=== PATIENT | male | born 1960 | race Caucasian/White ===

== ENCOUNTER → 2020-05-22 09:51 | Outpatient (CLI) | payer BC, SELFPAY ==
[2020-05-22 11:22] LABS: Hemoglobin A1C% w Est Avg Glu 5.6 % (4.0-6.0)
[2020-05-22 11:29] LABS: Alanine Aminotransferase 41 IU/L (<50); Albumin 4.4 g/dL (3.5-5.0); Albumin Globulin Ratio 1.6 (1.0-2.8); Alkaline Phosphatase 74 U/L (38-126); Aspartate Aminotransferase 30 IU/L (17-59); BUN Creatinine Ratio 27.3 (6-22); Bilirubin Total 0.7 mg/dL (0.2-1.3); Blood Urea Nitrogen 21 mg/dL (9-20); Calcium 9.5 mg/dL (8.4-10.2); Carbon Dioxide 29 mmol/L (22-32); Chloride 107 mmol/L (98-107); Cholesterol 150 mg/dL (140-199); Estimated Glomerular Filt Rate > 60.0 mL/min (>60); Globulin 2.7 g/dL (1.7-4.1); Glucose 96 mg/dL (70-100); HDL Cholesterol 53 mg/dL (40-60); HEMOLYSIS < 15 (0-50); LDL Cholesterol Calculated 84 mg/dL (<100); Sodium 140 mmol/L (137-145); Total Protein 7.1 g/dL (6.3-8.2); Triglycerides 65 mg/dL (35-150)
[2020-05-22 12:10] LABS: Creatinine Urine Random 193.7 mg/dL
[2020-05-22 12:16] LABS: Microalbumin Urine Random < 0.6 mg/dL (0-1.6)
== END ==
PROVIDERS: PCP Family Medicine; Referring Provider Family Medicine; Visit Provider Family Medicine
DX: E78.5 Hyperlipidemia, unspecified (principal); I10 Essential (primary) hypertension
CPT/HCPCS: 36415; 80053; 80061; 82043; 82570; 83036

== ENCOUNTER → 2020-08-07 08:37 | Outpatient (CLI) | payer BC, SELFPAY ==
--- NOTE | 2020-08-07 08:38 | DI.RAD.S_ITS ---
PROCEDURE: XR HIP W PEL IF DONE RT 2V INDICATIONS: right hip pain TECHNIQUE: AP pelvis with lateral view(s) of the right hip(s). COMPARISON: None. FINDINGS: Bones: No fractures or dislocations. Pelvic ring appears intact. No suspicious bony lesions. Note is made of degenerative change with alteration of the morphology of the femoral heads bilaterally greater on the right than the left. There is moderately severe joint space narrowing at the left hip. There is severe joint space narrowing at the right hip where [id number]-af-[id number] articulation is present to the degree that orthopedic surgical consultation is anticipated. Soft tissues: The visualized bowel gas pattern is normal. No suspicious soft tissue calcifications. IMP on the left. RESSION: No acute trauma found. Asymmetric right greater than left hip joint osteoarthritis which is severe on the right and moderately severe on the left, with [id number] articulation.. Dictated by: Eric Burgos M.D. on 08/07/2020 at 11:25 Approved by: Eric Burgos M.D. on 08/07/2020 at 11:27
== END ==
PROVIDERS: PCP Family Medicine; Referring Provider Family Medicine; Visit Provider Family Medicine
DX: M25.551 Pain in right hip (principal); M16.0 Bilateral primary osteoarthritis of hip; I10 Essential (primary) hypertension
CPT/HCPCS: 73502

== ENCOUNTER → 2020-09-25 07:42 | Outpatient (CLI) | payer BC, SELFPAY ==
[2020-09-25] MEDS: COVID-19 VACC #1, MRNA(MOD) 100 MCG/0.5 ML VIAL IM (07:47)
== END ==
PROVIDERS: PCP Family Medicine; Visit Provider Internal Medicine
DX: Z23 Encounter for immunization (principal)
CPT/HCPCS: 0011A; 91301

== ENCOUNTER → 2020-10-23 07:31 | Outpatient (CLI) | payer BC, SELFPAY ==
[2020-10-23] MEDS: COVID-19 VACC #2, MRNA(MOD) 100 MCG/0.5 ML VIAL IM (07:43)
== END ==
PROVIDERS: PCP Family Medicine; Visit Provider Internal Medicine
DX: Z23 Encounter for immunization (principal)
CPT/HCPCS: 0012A; 91301

== ENCOUNTER → 2021-03-25 11:00 | Outpatient (CLI) | payer BC, SELFPAY ==
[2021-03-25 12:25] LABS: Add Manual Diff / Slide Review NO; Basophils Absolute Auto 0 /uL (0-100); Basophils Percent Auto 0.4 % (0-2); Eosinophils Absolute Auto 500 /uL (0-450); Eosinophils Percent Auto 6.5 % (2-4); Hematocrit 42.2 % (41-53); Lymphocytes Absolute Auto 2100 /uL (1100-4500); Lymphocytes Percent Auto 28.3 % (25-40); Mean Corpuscular HGB Conc 33.2 % (30-36); Mean Corpuscular Hemoglobin 29.5 PG (26-34); Mean Corpuscular Volume 88.8 fL (80-100); Monocytes Absolute Auto 600 /uL (0-900); Monocytes Percent Auto 8.5 % (3-14); Neutrophils Absolute Auto 4200 /uL (1500-7000); Neutrophils Percent Auto 56.3 % (50-75); Platelet Count 224 X10^3/uL (150-400); Red Blood Cell Count 4.75 X10^6/uL (4.5-5.9); Red Cell Distribution Width 12.8 % (11.6-14.8); White Blood Cell Count 7.4 X10^3/uL (4.5-11.0)
[2021-03-25 12:35] LABS: Hemoglobin A1C% w Est Avg Glu 5.5 % (4.0-6.0)
[2021-03-25 12:44] LABS: Appearance Urine UA CLEAR; Bilirubin Urine UA NEGATIVE (NEGATIVE); Color Urine UA YELLOW; Glucose Urine UA NEGATIVE (Negative); Ketones Urine UA NEGATIVE (NEGATIVE); Leukocyte Esterase Urine UA NEGATIVE (NEGATIVE); Nitrite Urine UA NEGATIVE (Negative); Occult Blood Urine UA NEGATIVE (Negative); Protein Urine UA NEGATIVE (Negative); Specific Gravity Urine UA 1.025 (1.000-1.035); Urobilinogen Urine UA 0.2 E.U./dL (0.2); pH Urine UA 5.5 (4.5-8.0)
[2021-03-25 13:01] LABS: BUN Creatinine Ratio 22.5 (6-22); Blood Urea Nitrogen 20 mg/dL (9-20); Calcium 10.4 mg/dL (8.4-10.2); Carbon Dioxide 29 mmol/L (22-32); Chloride 106 mmol/L (98-107); Estimated Glomerular Filt Rate > 60.0 mL/min (>60); Glucose 92 mg/dL (80-110); HEMOLYSIS < 15 (0-50); Potassium 4.4 mmol/L (3.4-5.1); Sodium 143 mmol/L (137-145)
[2021-03-25 13:03] LABS: RBC Urine 0-1/HPF (0-5/HPF); Squamous Epithelial Cell Urine 0-1 /HPF (0-5/HPF); WBC Urine None Seen (0-5/HPF)
[2021-03-25 13:04] LABS: Bacteria Urine None Seen; Culture Indicated Urine Cult Not Indicated
== END ==
PROVIDERS: PCP Family Medicine; Referring Provider Orthopaedic Surgery; Visit Provider Orthopaedic Surgery
DX: Z01.818 Encounter for other preprocedural examination (principal); Z01.812 Encounter for preprocedural laboratory examination; R73.9 Hyperglycemia, unspecified; N39.0 Urinary tract infection, site not specified
CPT/HCPCS: 36415; 80048; 81001; 83036; 85025; 93005; 93010

== ENCOUNTER → 2021-04-27 13:16 | Outpatient (CLI) | payer BC, SELFPAY ==
[2021-04-27 16:44] LABS: COVID19 -Nasal RAPID Negative (Negative)
== END ==
PROVIDERS: PCP Family Medicine; Referring Provider Nurse Practitioner Family; Visit Provider Nurse Practitioner Family
DX: Z20.822 Contact with and (suspected) exposure to COVID-19 (principal)
CPT/HCPCS: 87635

== ENCOUNTER 2021-04-28 08:32 | Day surgery (SDC) | payer BC, SELFPAY ==
[2021-04-16 07:46] VITALS: BMI 27.8
[2021-04-28] VITALS (12 sets, daily range): BP systolic 96–137; BP diastolic 63–86; PULSE 59–78; RESP 14–18; TEMP 35.8–36.8; O2SAT 95–100; BMI 27.9
--- NOTE | 2021-04-28 02:30 | DI.RAD.S_ITS ---
PROCEDURE: XR HIP W PEL IF DONE RT 2V COMPARISON: [facility], [place], XR HIP W PEL IF DONE RT 2V, 08/07/2020, 8:38. INDICATIONS: anterior r hip FINDINGS: Intraoperative fluoroscopic views of the right hip demonstrate intraoperative views of total right hip replacement. IMPRESSION: Intraoperative fluoroscopic views as above. Dictated by: Carlton Witt M.D. on 04/28/2021 at 15:04 Approved by: Carlton Witt M.D. on 04/28/2021 at 15:05
--- NOTE | 2021-04-28 08:09 | DI.RAD.S_ITS ---
PROCEDURE: XR HIP W PEL IF DONE RT 2V INDICATIONS: postop prosthesis placement, right hip TECHNIQUE: AP pelvis and lateral view of the right hip acquired. COMPARISON: [facility], [place], XR HIP W PEL IF DONE RT 2V, 04/28/2021, 14:03. FINDINGS: Bones: Patient is status post right total hip arthroplasty, with hardware components in expected positions. The hip joint appears congruent. The visualized bony structures appear intact. Soft tissues: Overlying postoperative changes are noted. No suspicious soft tissue densities. IMPRESSION: Postop changes from right total hip arthroplasty with anatomic right hip alignment. Dictated by: Donis Chu M.D. on 04/28/2021 at 16:37 Approved by: Donis Chu M.D. on 04/28/2021 at 16:38
[2021-04-28] MEDS: ACETAMINOPHEN 325 MG TABLET 975 MG PO (09:18)
[2021-04-28] MEDS: CELECOXIB 200 MG CAPSULE PO (09:19)
[2021-04-28] MEDS: PREGABALIN 75 MG CAPSULE PO (09:20)
[2021-04-28] MEDS: LACTATED RINGERS 1,000 ML 42 ML IV ×2 (09:36→14:52)
[2021-04-28] MEDS: VANCOMYCIN 1,000 MG/200 ML PIGGYBACK 200 MG IV (10:07)
--- NOTE | 2021-04-28 11:27 | P.HP_ITS ---
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 He is brought the operating room for a right total hip arthroplasty. He has failed extensive conservative treatment. He is retired but he likes to fish and boat. Patient History Medical History Colon polyps (~2010) Heartburn History of recurrent ear infection (~1969) Hyperlipidemia Hypertension Multiple lipomas Osteoarthritis Surgical History Anesthesia History of colonoscopy History of colonoscopy with polypectomy History of coronary angiogram (~2010) History of sinus surgery (~2017) History of tympanostomy tube placement Hx of hernia repair S/P excision of lipoma Family & Social History Family History Mother Multiple myeloma Cancer Father History of heart disease Social History: household members spouse Prior Living Arrangements House Safety & Behavioral: Feels Safe in Current Yes Environment Been Physically Hurt or No Threatened By a Person Suicidal Ideation Description None Suicide Plan Description No Plan Tobacco & Substance use: Smoking Status Former smoker alcohol intake current alcohol intake frequency a few times a week Substance Use Type does not use Meds Home Medications and Allergies Home Medications Medication Instructions Recorded Confirmed Type aspirin 81 mg tablet,delayed 81 mg PO DAILY 04/16/21 04/28/21 History release (Aspirin Low Dose) lisinopril 10 mg tablet 10 mg PO DAILY 04/28/21 04/28/21 History meloxicam 15 mg tablet 15 mg PO PRN PRN 04/28/21 04/28/21 History simvastatin 20 mg tablet 20 mg PO DAILY 04/28/21 04/28/21 History Allergies Allergy/AdvReac Type Severity Reaction Status Date / Time Sulfa (Sulfonamide Allergy Severe I turn Verified 04/28/21 08:14 Antibiotics) bright red and I can't eat Review of Systems Review of Systems Narrative: He notes he is doing fine has no new medical problems. Exam Vital Signs (past 8 hours): - 04/28/21 09:07 Temperature 98.3 F Pulse Rate 65 Respiratory Rate 16 Blood Pressure 137/86 Pulse Oximetry 100 Oxygen Delivery Method Room Air Narrative Exam Narrative: HEENT is benign lungs are clear cor regular rate and rhythm abdomen soft benign right hip restricted range of motion severe range of most pain with range of motion, skin intact, neurologically intact distally the fire his toe flexors and extensors. Assessment & Plan Assessment and plan (1) Osteoarthritis of right hip: Status: Acute Plan He has severe right hip osteoarthritis. The plan is for right total hip arthroplasty. Procedure alternatives risks Carlos benefits and complications reviewed again with the patient. We will go ahead and proceed with right total hip arthroplasty. There is no interval change in comparison to his previous H&P. Assessment & Plan narrative: Right hip severe osteoarthritis. The plan is for right total hip arthroplasty. Procedure discussed in detail. We will proceed with that today. Time Spent With Patient Critical Care time: I spent a total of [] minutes of critical care time on this patient's care today; this time is exclusive of procedural time.
--- NOTE | 2021-04-28 11:35 | P.OP_ITS ---
Operative Date/Time/Diagnoses Date of procedure: 04/28/21 Time of procedure: 11:36 Pre-op diagnosis: Severe right hip osteoarthritis. Post-op diagnosis: same Procedure & Clinicians Procedure: Right total hip arthroplasty anterior approach Same procedure as scheduled: Yes Indications: The patient has had progressively worsening right hip pain with radiographic changes consistent with arthritis. Non-operative management has failed and the patient has requested total hip replacement. The risks, benefits and alternatives to surgery were discussed with the patient prior to proceeding. Risks discussed included, but were not limited to, failure to relieve pain, leg length discrepancy, dislocation, stiffness, infection, nerve damage, deep venous thrombosis, pulmonary embolism, stroke, coma, heart attack, permanent paralysis and , as well as the potential need for eventual revision of the prosthetic. Surgeon: Emmie Rodriguez Passenger Rate Clerk: Liza Hall Anesthesia Type: Spinal Operative Notes Findings: Severe right hip osteoarthritis, good quality bone, adequate stability Closure Type: primary Specimen(s): none sent Prosthetic devices, grafts, tissues, transplants, or devices: Rodriguez and nephew size 8 high offset anthology, 56 mm R3 cup, neutral poly liner, 2 6.5 mm cancellous screws, minus 3 x 36 mm Oxinium head Applied: drain(s) Estimated Blood Loss (mL): 250 Blood products transfused: none Procedure in detail: The patient was brought to the operating room. Patient was carefully positioned in the supine position. Time-out was performed and antibiotics were given. Anesthesia was induced. He was positioned in the on the table in order to allow hyperextension of the hip. The right lower extremity was prepped and draped in a standard sterile fashion. An anterior right hip incision was made 1 fingerbreadth lateral to the anterior superior iliac spine and extended distally towards the greater trochanter. Dissection was carried out through skin and subcutaneous tissues. Superficial hemostasis was achieved. The fascia over the tensor fascia nguyễn was defined and incised with a knife. Two Allis clamps were used to grasp the fascia. Tensor fascia nguyễn was retracted laterally. A gelpi retractor was placed. Dissection was carried out down along the neck. The circumflex vessels were carefully identified and cauterized with the werewolf. There was good visualization of the femoral neck. A Cobra was placed superior to the neck and the gluteus fibers were carefully stripped from that superior aspect of the capsule. A 2nd retractor was placed along the inferior aspect of the neck. The rectus insertion along the capsule was partially released. A 3rd retractor that was then gently placed over the rim of the acetabulum under the rectus. Capsule was carefully incised and released from the intertrochanteric line circumferentially superior to the mid sagittal line and inferiorly to the mid sagittal line until the lesser trochanter was palpable. A tag stitch was placed both in the superior and inferior limb of the capsular insertion. Along the acetabulum capsule was also released up to the mid sagittal 12:00 position. A portion of the labrum was resected. A saw was used to perform an osteotomy at the level of the intertrochanteric line and the junction of the superior femoral neck leaving approximately 1 finger breath of residual inferior neck above the lesser trochanter. A 2nd cut was made along the femoral neck at the base of the head and a napkin ring of neck was removed. Corkscrew was placed in the femoral head and the head was removed without difficulty. Retractors were then repositioned around the acetabulum. Residual labrum was resected and additional osteophytes were removed. A reamer that was 4 mm below the templated size was placed by hand in the acetabulum and it was reamed to centralize the acetabulum. It was then reamed up to 2 under the templated size and fluoroscopy was brought in to confirm the position of the reaming and depth of reaming. I reamed 1 under the anticipated size. A trial cup was placed and noted that it was appropriately sized and fluoroscopy confirmed position and depth. The component was open and inserted without difficulty fluoroscopic imaging was used to confirm that the cup had been adequately seated and was well positioned. It was further stabilized with two screws. Neutral poly liner was placed. The cup was tested and noted to be stable. Attention was then directed to the femur. The femur was gently hyperextended additional capsular release was performed as needed in order to allow adequate visualization of the proximal femur with elevation of the femur. Patient was placed in a hyperextended slightly adducted position with maximum external rotation. Box osteotome was used to check for any residual neck as well as sclerotic bone along the trochanter. [place] pepper was placed in the femur. Additional broaching was performed. Canal finder was used to determine the alignment of the canal and position. Size 1 broach was placed. The canal was then appropriately broached up to the templated size as long as there was adequate stability of the broach and serial advancement of the broach without excessive impingement. Specific attention was directed at avoiding varus attempting to direct the distal aspect of the broach more anteriorly and avoiding excessive anteversion. Trial reduction showed acceptable range of motion, good stability, no posterior impingement, anabaptism of leg length and appropriate lateral shuck. I also hyperflexed the hip and checked that there was no impingement anteriorly and there was good stability with flexion, adduction and internal rotation. Marcaine and Exparel were injected. The stem was placed without difficulty. It was fairly tight for the reduction but the x-rays showed acceptable leg length and offset. Repeat trial reduction and x-ray showed acceptable overall position, length, and no evidence of the femoral fracture. Final head was placed. Wound was meticulously irrigated with normal saline. The hip was reduced and additional Exparel and Marcaine were injected. The capsule was closed with interrupted nonabsorbable sutures. The fascia of the tensor was closed with interrupted and running Vicryl. No drain was placed. Any tensor fascia nguyễn muscle that appeared to be contused or injured which was a minimal amount was carefully resected. Capsule around the tensor was injected with Exparel and Marcaine. The skin was closed with barbed stitches for the subcutaneous tissue and skin. We also used surgical glue. The wound was dressed sterilely. Brief Betadine soak was also used and was meticulously irrigated with normal saline. Patient was transferred to recovery room in satisfactory condition. Complications: none Post-operative Condition: stable Disposition: Acute Care Plan for aftercare: The patient will be maintained on a standard total hip replacement protocol with weight bearing as tolerated and anterior hip precautions. The patient will rece gerson Aspirin and sequential compression devices for DVT prophylaxis. The patient will be discharged home when safe for the home environment.
[2021-04-28] MEDS: CEFAZOLIN 2 GM/20 ML SYRINGE IV ×2 (11:55→20:23)
[2021-04-28] MEDS: TRANEXAMIC ACID 1,000 MG VIAL 1000 MG INJ ×2 (12:02→14:13)
--- NOTE | 2021-04-28 12:18 | SUR.OPER ---
Patient supine on padded [place] table, one arm on padded arm board at <90, other arm padded and secured with tape across patient's chest, both legs secured in padded traction boots and positioned per surgeon, padded post at patient's groin, pressure points checked and padded.
[2021-04-28] MEDS: BUPIVACAINE 0.25% (PF) 60 ML, EPINEPHrine 0.3 MG INJ (13:23)
[2021-04-28] MEDS: BUPIVACAINE LIPOSOME 266 MG/20 ML VIAL INJ (13:24)
[2021-04-28] MEDS: SODIUM CHLORIDE IRRIG SOLUTION 250 ML, POVIDONE-IODINE SPONGE STICKS 1 APPLIC IRR (13:26)
--- NOTE | 2021-04-28 15:15 | SUR.PHASEI ---
Addendum entered by Melissa Prater R.N. 04/28/21 15:45: 1535-Does report some residual numb/tingling in buttocks /perineum area-feels like he sat too long. report to floor RN given. exaprel arm band on left wrist. csm ble otherwise unchanged. Off monitor-transitioning to floor.vss . oxygen sat 99 on r/a. still refused po fluids. iv converted to saline lock for transfer. denied pain/nausea. Dr Rodriguez in to say hi to patient. 1540-In room via bed. Care transferred to Estefania DUMONT. one bag of belongings left at bedside. Original Note: Pacu note: 1515-Patient recieved spinal duramorph intra op. No complaint of pain or nausea at this time. more awake and follows commands. Rt hip xrays completed. ice rt hip.dressing cdi rt lateral hip. Csm RLE-moderate dorsi/planter flexion, toes warm,pink,under 3 sec refill each digit. strong dp/pt pulses. Able to lift/bend left knee well. vss. 1525-more awake and alert.oriented x 4. denies any numbness/tingling in feet bilateral. dorsi/planter flexion strong bilaterally.no other changes in status. Refused offers for po ice chips or fluids.
[2021-04-28] MEDS: LACTATED RINGERS 1,000 ML 125 ML IV (16:10)
[2021-04-28] MEDS: IBUPROFEN 400 MG TABLET PO ×2 (17:59→20:23)
[2021-04-28] MEDS: ACETAMINOPHEN 325 MG TABLET 650 MG PO (20:23)
[2021-04-28] MEDS: ATORVASTATIN 20 MG TABLET 10 MG PO (20:24)
[2021-04-28] MEDS: DOCUSATE 100 MG CAPSULE PO (20:24)
[2021-04-28] MEDS: ASPIRIN EC 81 MG TABLET PO (20:24)
[2021-04-29] VITALS: BP 119/70; PULSE 69; RESP 16; TEMP 36.4; O2SAT 98
[2021-04-29] MEDS: LACTATED RINGERS 1,000 ML 125 ML IV (00:08)
[2021-04-29] MEDS: IBUPROFEN 400 MG TABLET PO ×3 (00:09→08:17)
--- NOTE | 2021-04-29 03:04 | PC.NURSE ---
Patient was bladder scanned at shift change d/t not being able to void since arriving to the unit, scan showed 451 in the bladder. Day shift RN straight cath'd the patient and was able to drain 450 out. Patient still was not able to void this shift and at 0100 the patient stated that he could feel the urge and had mild distention. A bladder scan was done which revealed 600 in the bladder. This RN straight cath'd the patient and was able to drain 525 out. Patient stated that he felt better. Will continue to monitor
[2021-04-29 04:00] VITALS: BP 117/68; PULSE 67; RESP 16; TEMP 36.2; O2SAT 96
[2021-04-29] MEDS: CEFAZOLIN 2 GM/20 ML SYRINGE IV (04:26)
[2021-04-29 06:31] LABS: Hematocrit 34.8 % (41-53); Hemoglobin 11.8 g/dL (13.5-17.5)
[2021-04-29 08:17] VITALS: BP 118/74; PULSE 62
[2021-04-29] MEDS: lisinopriL 10 MG TABLET PO (08:17)
[2021-04-29] MEDS: ACETAMINOPHEN 325 MG TABLET 650 MG PO (08:18)
[2021-04-29] MEDS: ASPIRIN EC 81 MG TABLET PO (08:18)
[2021-04-29] MEDS: DOCUSATE 100 MG CAPSULE PO (08:18)
[2021-04-29 08:20] VITALS: BP 118/74; PULSE 63; RESP 16; TEMP 36.4; O2SAT 98
--- NOTE | 2021-04-29 10:26 | PT.IIE ---
Current Diagnoses Unilateral primary osteoarthritis, right hip (04/28/21) Surgery Performed Operation Date: 04/28/21 10:30 Actual Procedures p Total Hip Arthroplasty/Anterior Approach(Right) - Emmie Rodriguez MD Surgical History (Last Reviewed 04/29/21 @ 11:00 by Dionicio Perry PA-C) Anesthesia History of coronary angiogram (~2010) Medical History (Last Reviewed 04/29/21 @ 11:00 by Dionicio Perry PA-C) Colon polyps (~2010) Heartburn History of recurrent ear infection (~1969) Hyperlipidemia Hypertension Multiple lipomas Osteoarthritis Physical Therapy Inpatient Evaluation/Re-Eval M1 PT/OT-IP Prior Functional Status Start: 04/29/21 13:20 Freq: NEEDED Status: Active Protocol: Document 04/29/21 10:26 AB (Rec: 04/29/21 13:29 AB [id number]) Medical Review Prior Functional Status Medical History Reviewed Yes Communication able to make needs known Mobility and Gait pt stated that he is independent with all mobilities and ambulation without AD Social History Household Members spouse Living Arrangements House Number of Floors (Floors) Two Floors Number of Stairs To Enter/Railing? pt stays on main level of the house has no steps to enter Home Environment Standard Height Toilet,Walk in Shower,Built-In Shower Seat Home Equipment Front Wheel Walker,Straight Cane M2 PT-IP Current Condition Start: 04/29/21 13:20 Freq: NEEDED Status: Active Protocol: Document 04/29/21 10:26 AB (Rec: 04/29/21 13:29 AB [email or web address]) Physical Therapy Current Condition Current Condition Evaluation Date 04/29/21 Treatment Diagnosis s/p R SAWYER anterior approach; difficulty in walking Onset Date 04/28/21 M3 PT-IP Subjective Start: 04/29/21 13:20 Freq: NEEDED Status: Active Protocol: Document 04/29/21 10:26 AB (Rec: 04/29/21 13:29 AB [email or web address]) Subjective Physical Therapy Visit Type Type Initial Evaluation Visit Start Time 10:26 Visit Stop Time 11:05 Total Visit Minutes 39 Number of MITTEN SEWER Visits 0 Physical Therapy Visit Comments Patient Comments agreeable to do PT Therapy Pain Assessment Pain When Pain Assessed During Mobility Pain Present Pain Present Pain Reported Location Right Hip Intensity 4 Scale Used Numeric (0 - 10) Pain Management Techniques Distraction,Modification of Treatment,Re-positioning, Timing of Activity with Medications M4 PT-IP Mobility and Gait Start: 04/29/21 13:20 Freq: NEEDED Status: Active Protocol: Document 04/29/21 10:26 AB (Rec: 04/29/21 13:29 [email or web address]) PT-Bed Mobility Assessment Supine to Sit Supine to Sit Standby Assistance PT-Transfer Assessment Sit to and From Stand Sit to and from Stand Standby Assistance,1 Person Assistance,Use of Upper Extremities Equipment Transfer Assistive Device Gait Belt,Front Wheeled Walker Orthotic/Prosthetic Devices or Brace: No Transfers Transfer Destination Chair Transfer Technique ambulated Transfer Ability Level of Assist Standby Assistance,Contact Guard Assistance Comments Mobility Comments pt educated on anterior hip precautions. completed supine to sit SBA. able to sit on EOB SBA. completed sit to stand SBA. ambulated in room ~ 75 ft using FWW initially requirind CGA. cued for R quads activation and able to follow and required SBA after a few feet of ambulation. also initially requiring cues to maintain hip precautions but able to recall and apply during mobility. pt agreed to sit on chair. positioned on chair. educated on car transfer techniques. call ilght and table placed within reach. Gait Assessment Gait Gait Assistance Required: Standby Assistance,Contact Guard Assist Distance (Feet) 75 Able to Maintain Weight Bearing Status Yes During Gait Assistive Devices Assistive Device Gait Belt,Front Wheeled Walker Orthotic/Prosthetic Devices or Brace: No Gait Deviations General Gait Pattern Antalgic Factors Limiting Gait Function Factors Limiting Gait Function Decreased Activity Tolerance, Decreased Strength,Limited Range of Motion,Pain,Poor Balance PT-Balance Assessment Sitting Balance and Reactions Static Sitting Balance Ability Normal Dynamic Sitting Balance Ability Good Standing Balance and Reactions Static Standing Balance Ability Fair Dynamic Standing Balance Ability Fair Device Used FWW M5 PT-IP Objective Assessments Start: 04/29/21 13:20 Freq: NEEDED Status: Active Protocol: Document 04/29/21 10:26 AB (Rec: 04/29/21 13:29 [email or web address]) Orientation Orientation/Cognition Level of Alertness Alert Orientation Name,Age,Birthday,Month,Date, Year,Day of Week,Place, Situation Language Function Ability No Deficits Noted Safety Awareness Understands Safety Issues Memory Description Short Term Impaired Gross Range of Motion Lower Extremity ROM Assessment Within Functional Limits Strength Lower Extremity Strength Assessment Right Impaired Hip 3+/5 Knee 4-/5 Coordination Assessment Gross Coordination Gross Coordination WNL Sensation Assessment Sensation Gross Sensation WNL Muscle Tone Muscle Tone WNL Yes M6 PT-IP Treatment Start: 04/29/21 13:20 Freq: NEEDED Status: Active Protocol: Document 04/29/21 10:26 AB (Rec: 04/29/21 13:29 AB [id number]) Physical Therapy Treatment Education Education Provided Precautions,Weight Bearing Status,Post-Op Packet,Safety M7 PT-IP Assessment and Plan Start: 04/29/21 13:20 Freq: NEEDED Status: Active Protocol: Document 04/29/21 10:26 AB (Rec: 04/29/21 13:29 AB [email or web address]) PT Summary Assessment and Plan Potential Rehabilitation Potential Good Status of Condition at Evaluation Stable Summary Impairments Pain,ROM,Strength,Balance, Coordination,Sensation,Tone, Cognition,Bed Mobility, Transfers,Gait,Activity Tolerance Assessment Summary pt requiring SBA with mobility using FWW and plans to go home with spouse to assist him . pt has outpt PT scheduled. pt may go home when medically stable. Goals Bed Mobility Goal Independent Transfer Goal Independent,Front Wheeled Walker Gait Goal Independent,Front Wheel Walker Gait Distance 250 Days to Meet Goals 0 Frequency of Treatment Frequency Of Treatment Twice a Day Treatment Plan Physical Therapy Treatment Plan Bed Mobility Training,Transfer Training,Gait Training, Therapeutic Exercise,Balance Retraining,Post Op Education, Discharge Planning,Hot or Cold Pack,Neuromuscular Re-ed, Coordination Retraining,Manual Therapy Precautions Anterior Hip Precautions No Hip Extension,No Hip External Rotation Weight Bearing Status Weight Bearing Status Weight Bear as Tolerated Allowed Weight Bearing Amount (enter % RLE WBAT or #) (%) Recommendations To Nursing Amount of Assist Needed Standby Assistance Discharge Recommendations PT Discharge Recommendations Home with Assistance, Outpatient PT Transportation Needs at Discharge Private Vehicle
--- NOTE | 2021-04-29 10:58 | PM.DS.1 ---
History of Present Illness History of Present Illness Date Patient Seen: 04/29/21 Time Patient Seen: 10:58 Chief complaint: Right hip pain Narrative: Patient's pain is mild. Denies fever or chills. No nausea or vomiting. Discharge Providers Provider Discharge Date: 04/29/21 Primary care physician: Ash Redmond MD Consults: 04/28/21 08:09 Consult to Anesthesiology Routine Comment: Consulting Provider: Anesthesiologist Reason for consultation: Regional block for post operative pain control 04/28/21 15:46 Consult to Discharge Planning Routine Comment: Consult to Physical Therapy Evaluate & Treat Comment: Physician Instructions: post op SAWYER protocol Consult to Respiratory Therapy Evaluate & Treat Comment: Physician Instructions: Evaluate and treat Discharge provider: Dionicio Perry PA-C Summary Hospital Course Discharge Diagnosis: Severe right hip osteoarthritis Hospital Course: Procedure: Right total hip arthroplasty anterior approach Same procedure as scheduled: Yes Indications: The patient has had progressively worsening right hip pain with radiographic changes consistent with arthritis. Non-operative management has failed and the patient has requested total hip replacement. The risks, benefits and alternatives to surgery were discussed with the patient prior to proceeding. Risks discussed included, but were not limited to, failure to relieve pain, leg length discrepancy, dislocation, stiffness, infection, nerve damage, deep venous thrombosis, pulmonary embolism, stroke, coma, heart attack, permanent paralysis and , as well as the potential need for eventual revision of the prosthetic. Surgeon: Emmie Rodriguez Employee Placement Specialist: Liza Hall Anesthesia Type: Spinal Operative Notes Findings: Severe right hip osteoarthritis, good quality bone, adequate stability Closure Type: primary Specimen(s): none sent Prosthetic devices, grafts, tissues, transplants, or devices: Rodriguez and nephew size 8 high offset anthology, 56 mm R3 cup, neutral poly liner, 2 6.5 mm cancellous screws, minus 3 x 36 mm Oxinium head Applied: drain(s) Estimated Blood Loss (mL): 250 Blood products transfused: none Patient admitted to the hospital for the above-mentioned procedure. Patient consented to the same. Patient taken to the operating room on April 28, 2021. Patient underwent right total hip arthroplasty, anterior approach. Patient back in his room recovering well as in stable condition. Discharge home today in stable condition. Exam Vital Signs (past 8 hours): - 04/29/21 04:00 04/29/21 08:17 04/29/21 08:20 Temperature 97.2 F L 97.5 F L Pulse Rate 67 62 63 Respiratory Rate 16 16 Blood Pressure 117/68 118/74 118/74 Pulse Oximetry 96 98 Oxygen Delivery Method Room Air Oxygen Flow Rate 0 Narrative Exam Narrative: 60-year-old male resting comfortably in bed in no apparent distress. Dressing is Clean, dry, intact.. Motor functions intact distal bilateral lower extremities. Sensation grossly intact bilateral lower extremities. Objective Labs Result Diagrams: 04/29/21 05:35 Labs: Laboratory Results - last 24 hr 04/29/21 05:35 Hgb 11.8 L Hct 34.8 L PFSH Medical History Colon polyps (~2010) Heartburn History of recurrent ear infection (~1969) Hyperlipidemia Hypertension Multiple lipomas Osteoarthritis Surgical History Anesthesia History of colonoscopy History of colonoscopy with polypectomy History of coronary angiogram (~2010) History of sinus surgery (~2017) History of tympanostomy tube placement Hx of hernia repair S/P excision of lipoma Family History Mother Multiple myeloma Cancer Father History of heart disease Social History household members: spouse Smoking Status: Former smoker alcohol intake: current Discharge Assessment & Plan Assessment and Plan Assessment: Patient progressing as expected Plan of Treatment: Discharge home today in stable condition Discharge Plan Discharge Plan Patient Disposition: Home Provider Discharge Comment: Discharge home after physical therapy Discharge orders & Medications Discharge Orders: Discharge (Order); Ordered 04/29/21 Ordered By: Dionicio Perry Prescriptions: New acetaminophen 325 mg Tablet 650 mg PO TID Qty: 60 0RF aspirin 81 mg Tablet,Delayed Release (Dr/Ec) 81 mg PO BID Qty: 60 0RF ibuprofen 400 mg Tablet 400 mg PO Q4HR Qty: 60 0RF oxycodone 5 mg Tablet 10 mg PO Q3HR PRN (Reason: Pain, Severe (7-10)) Qty: 60 0RF Rx Instructions: 1-2 tablets every 3 hours as needed for pain Continued simvastatin 20 mg tablet 20 mg PO DAILY 0RF Rx Instructions: TAKE 1 TABLET BY MOUTH EVERY EVENING lisinopril 10 mg tablet 10 mg PO DAILY 0RF Label Comments: Pt takes after dinner Rx Instructions: TAKE 1 TABLET BY MOUTH DAILY Discontinued aspirin [Aspirin Low Dose] 81 mg Tablet,Delayed Release (Dr/Ec) 81 mg PO DAILY 0RF meloxicam 15 mg tablet 15 mg PO PRN PRN (Reason: Pain (Scale Score 1-3)) 0RF Follow up/Referrals: Ash Redmond MD [Primary Care Provider] - Emmie Rodriguez MD [Physician] - (2 weeks) Diet/Activity/Treatments Diet: Diet as Tolerated Activity: Weight-bearing as tolerated, anterior hip precautions Skin/Wound/Dressing Care Report to your healthcare provider any signs of infection, such as:: chills, fever, increased pain, unusual drainage and unusual redness Dressing: Keep dressing clean and dry Visit Report/Discharge Packet Instructions: DI for Hip Replacement Stand Alone Forms: Surgery Discharge Discharge Data Primary Care Provider: Ash Redmond Attending Provider: Emmie Rodriguez Quality VTE Deep Vein Thrombosis/Pulmonary Embolism Present on Admission: No
== END 2021-04-29 12:00 | disposition home or self-care (01) ==
LOC: OR 08:34 → AC 08:34
PROVIDERS: PCP Family Medicine; Referring Provider Family Medicine; Visit Provider Orthopaedic Surgery
PROC: (CPT 27130; principal; 2021-04-28 10:30)
DX: M16.11 Unilateral primary osteoarthritis, right hip (principal); I10 Essential (primary) hypertension; E78.5 Hyperlipidemia, unspecified; K21.9 Gastro-esophageal reflux disease without esophagitis
CPT/HCPCS: 27130; 36415; 73502; 76000; 85014; 85018; 97161; 97530; C1776; C9290; J0171; J0330; J0690; J1100; J2250; J2274; J2405; J2704; J3010

== ENCOUNTER → 2022-03-18 09:54 | Outpatient (CLI) | payer BC, SELFPAY ==
[2021-04-28 08:48] VITALS: BMI 27.9
[2022-03-18 11:00] LABS: Alanine Aminotransferase 54 IU/L (<50); Albumin 4.2 g/dL (3.5-5.0); Albumin Globulin Ratio 1.6 (1.0-2.8); Alkaline Phosphatase 71 U/L (38-126); Aspartate Aminotransferase 28 IU/L (17-59); BUN Creatinine Ratio 19.3 (6-22); Bilirubin Total 0.4 mg/dL (0.2-1.3); Blood Urea Nitrogen 17 mg/dL (9-20); Calcium 9.6 mg/dL (8.4-10.2); Carbon Dioxide 23 mmol/L (22-32); Chloride 108 mmol/L (98-107); Cholesterol 158 mg/dL (140-199); Estimated Glomerular Filt Rate > 60 mL/min (>60); Globulin 2.6 g/dL (1.7-4.1); Glucose 100 mg/dL (80-110); HDL Cholesterol 54 mg/dL (40-60); HEMOLYSIS < 15 (0-50); LDL Cholesterol Calculated 86 mg/dL (<100); Potassium 4.5 mmol/L (3.4-5.1); Sodium 143 mmol/L (137-145); Total Protein 6.8 g/dL (6.3-8.2); Triglycerides 88 mg/dL (35-150)
[2022-03-18 11:02] LABS: Add Manual Diff / Slide Review NO; Basophils Absolute Auto 0 /uL (0-100); Basophils Percent Auto 0.3 % (0-2); Eosinophils Absolute Auto 400 /uL (0-450); Eosinophils Percent Auto 5.8 % (2-4); Hematocrit 40.1 % (41-53); Hemoglobin 13.9 g/dL (13.5-17.5); Lymphocytes Absolute Auto 2300 /uL (1100-4500); Lymphocytes Percent Auto 36.4 % (25-40); Mean Corpuscular HGB Conc 34.6 % (30-36); Mean Corpuscular Hemoglobin 29.4 PG (26-34); Mean Corpuscular Volume 85.1 fL (80-100); Monocytes Absolute Auto 600 /uL (0-900); Monocytes Percent Auto 9.4 % (3-14); Neutrophils Absolute Auto 3100 /uL (1500-7000); Neutrophils Percent Auto 48.1 % (50-75); Platelet Count 239 X10^3/uL (150-400); Red Blood Cell Count 4.71 X10^6/uL (4.5-5.9); Red Cell Distribution Width 13.3 % (11.6-14.8); White Blood Cell Count 6.4 X10^3/uL (4.5-11.0)
[2022-03-18 11:03] LABS: HEMOLYSIS < 15 (0-50); Iron 111 ug/dL (49-181)
[2022-03-18 11:14] LABS: Percent Iron Saturation 32 % (20-50); Total Iron Binding Capacity 347 ug/dL (261-462); Transferrin 253 mg/dL (206-381)
[2022-03-18 11:29] LABS: Prostate Specific Antigen Scrn 3.57 ng/mL (0.1-4.0)
[2022-03-18 11:33] LABS: Ferritin 33 ng/mL (18-464)
[2022-03-18 11:48] LABS: Vitamin B12 454 pg/mL (239-931)
[2022-03-18 16:29] LABS: Hep C Virus Ab w/Reflex Quant NEGATIVE s/c (NEGATIVE)
[2022-03-18 19:20] LABS: Creatinine Urine Random 130.6 mg/dL
[2022-03-18 19:25] LABS: Microalbumi Creatinin Ratio Ur 6.1 ug/mg CR (<30); Microalbumin Urine Random 0.8 mg/dL (0-1.6)
== END ==
PROVIDERS: PCP Family Medicine; Referring Provider Family Medicine; Visit Provider Family Medicine
DX: D64.9 Anemia, unspecified (principal); E78.5 Hyperlipidemia, unspecified; I10 Essential (primary) hypertension; M25.559 Pain in unspecified hip; Z12.5 Encounter for screening for malignant neoplasm of prostate
CPT/HCPCS: 36415; 80053; 80061; 82043; 82570; 82607; 82728; 83540; 83550; 85025; 86803; G0103

== ENCOUNTER → 2022-11-10 12:12 | Outpatient (CLI) | payer BC, OTHER, SELFPAY ==
[2021-04-28 08:48] VITALS: BMI 27.9
--- NOTE | 2022-11-10 12:13 | DI.RAD.S_ITS ---
PROCEDURE: XR ANKLE LT MIN 3V INDICATIONS: Left ankle strain TECHNIQUE: 3 views of the ankle were acquired. COMPARISON: None. FINDINGS: Bones: No fractures or dislocations. Ankle mortise is normally aligned. No suspicious bony lesions. Soft tissues: Malleolar swelling suspected. No tibiotalar joint effusion. Achilles tendon appears normal. IMPRESSION: No acute osseous abnormality. If clinically indicated consider follow-up radiographs in 10-14 days. Dictated by: Zachary Krishnan M.D. on 11/10/2022 at 15:05 Approved by: Zachary Krishnan M.D. on 11/10/2022 at 15:07
== END ==
PROVIDERS: PCP Family Medicine; Referring Provider Nurse Practitioner Family; Visit Provider Nurse Practitioner Family
DX: S96.912A Strain of unspecified muscle and tendon at ankle and foot level, left foot, initial encounter (principal)
CPT/HCPCS: 73610

== ENCOUNTER → 2023-01-21 11:09 | Outpatient (CLI) | payer BC, OTHER, SELFPAY ==
[2021-04-28 08:48] VITALS: BMI 27.9
--- NOTE | 2023-01-21 11:10 | DI.RAD.S_ITS ---
PROCEDURE: XR ANKLE LT MIN 3V INDICATIONS: unresolved pain, please compare to November x-ray TECHNIQUE: 3 views of the ankle were acquired. COMPARISON: [facility], [place], XR ANKLE LT MIN 3V, 11/10/2022, 12:25. FINDINGS: Bones: No fractures or dislocations. Ankle mortise is normally aligned. No suspicious bony lesions. Soft tissues: Small tibiotalar joint effusion. Achilles tendon appears normal. Soft tissue swelling about the ankle. IMPRESSION: No acute osseous abnormality. No significant change compared to 11/10/2022. If clinically indicated, cross-sectional imaging may be of value. Dictated by: John Rowan M.D. on 01/21/2023 at 12:49 Approved by: John Rowan M.D. on 01/21/2023 at 12:51
== END ==
PROVIDERS: PCP Family Medicine; Referring Provider Family Medicine; Visit Provider Family Medicine
DX: S96.912A Strain of unspecified muscle and tendon at ankle and foot level, left foot, initial encounter (principal); M25.472 Effusion, left ankle; M79.89 Other specified soft tissue disorders; M25.572 Pain in left ankle and joints of left foot; X58.XXXA Exposure to other specified factors, initial encounter
CPT/HCPCS: 73610

== ENCOUNTER → 2023-01-25 19:30 | Outpatient (CLI) | payer BC, OTHER, SELFPAY ==
[2021-04-28 08:48] VITALS: BMI 27.9
--- NOTE | 2023-01-25 19:35 | DI.MRI.S_ITS ---
PROCEDURE: MR ANKLE LT WO CON INDICATIONS: ongoing left ankle swelling TECHNIQUE: Noncontrast sagittal T1 spin echo and T2 fast spin echo with fat saturation, axial proton density fast spin echo and T2 fast spin echo with fat saturation, coronal T1 spin echo and T2 fast spin echo with fat saturation through the ankle/hindfoot. COMPARISON: None. FINDINGS: Image quality: Excellent. Bones and joints: Diffuse subcutaneous soft tissue edema and swelling surrounding distal lower leg and extending to dorsal and lateral aspect of midfoot and hindfoot is seen. Osteoarthritic changes are noted throughout midfoot and hindfoot joints with joint space narrowing and subchondral sclerosis. No fracture or dislocation. Subtle area of marrow edema involving lateral weight-bearing portion of talar dome is seen concerning for early tiny osteochondral injuries best seen on series 6, image 15 and series 7, image 16. Small amount of tibiotalar and subtalar joint effusion is seen, no gross loose bodies. Medial structures: The posterior tibialis tendon is thickened with small amount of fluid distending tendon sheath at the level of mid to distal talus and talonavicular joint. The flexor digitorum longus, and flexor hallucis longus tendons are intact. The posterior tibial neurovascular bundle appears normal within the tarsal tunnel, without extrinsic mass effect. The deep layer (anterior and posterior tibiotalar ligaments) and superficial layer (tibionavicular, tibiospring, and tibiocalcaneal ligaments) of the deltoid ligament appear normal. The spring ligament components (superomedial calcaneonavicular, medioplantar oblique calcaneonavicular, and inferoplantar longitudinal ligaments) are intact. Lateral structures: The anterior talofibular, calcaneofibular, and posterior talofibular ligaments appear intact. More superiorly, the anterior and posterior tibiofibular ligaments appear intact, as is the intermalleolar ligament. The tibiofibular syndesmosis is normal in width at 2 mm or less. The peroneus longus and brevis tendons demonstrate normal location and morphology. Adjacent bony peroneal tubercle and retrotrochlear prominence are normal in size. The sinus tarsi demonstrates normal fatty signal, without edema, fibrosis, or cyst formation. Visualized sinus tarsi components (cervical ligament, interosseous talocalcaneal ligament, roots of the inferior extensor retinaculum) appear normal. The calcaneonavicular and calcaneocuboid components of the bifurcate ligament appear intact. The dorsal calcaneocuboid ligament appears intact. Anterior structures: The tibialis anterior, extensor hallucis longus, and extensor digitorum longus tendons appear intact. The dorsal talonavicular ligament appears intact. Posterior and plantar structures: There is diffuse thickening of the Achilles tendon with focal moderate grade partial-thickness tear involving Achilles tendon approximately 4.3 cm from its insertion on posterior calcaneus and up to 2.3 cm proximal retraction of torn tendon fibers with a intrasubstance fluid signal and surrounding edema. Medial and lateral bands of the plantar fascia are of normal thickness. No abductor digiti quinti muscle atrophy to suggest Cervantes neuropathy. IMPRESSION: 1. Focal area of moderate grade partial-thickness tear involving Achilles tendon approximately 4.3 cm from its insertion on posterior calcaneus with up to 2.3 cm proximal retraction of torn tendon fibers and surrounding fluid. No full-thickness Achilles tendon rupture. 2. [id number] midfoot and hindfoot joint osteoarthritis. No fracture or dislocation. Suggestion of early tiny osteochondral injuries involving lateral weight-bearing portion of talar dome. Diffuse ankle soft tissue swelling and edema. 3. Tendinosis involving posterior tibialis tendon at the level of distal talus and talonavicular joint. 4. Medial and lateral ankle ligaments are grossly intact. Dictated by: Donis Chu M.D. on 01/26/2023 at 10:31 Approved by: Donis Chu M.D. on 01/26/2023 at 10:35
== END ==
PROVIDERS: PCP Family Medicine; Referring Provider Family Medicine; Visit Provider Family Medicine
DX: S86.012A Strain of left Achilles tendon, initial encounter (principal); M19.072 Primary osteoarthritis, left ankle and foot; M25.572 Pain in left ankle and joints of left foot; M25.472 Effusion, left ankle
CPT/HCPCS: 73721

== ENCOUNTER 2023-05-19 11:15 | Outpatient (RCR) | payer BC, OTHER, SELFPAY ==
[2021-04-28 08:48] VITALS: BMI 27.9
--- NOTE | 2023-04-05 16:41 | PT.OIE ---
Current Diagnoses Primary osteoarthritis, unspecified ankle and foot (04/05/23) Strain of unspecified Achilles tendon, initial encounter (04/05/23) Past Medical History (Last Updated 03/16/22 @ 15:59 by Ash Redmond MD) Colon polyps (~2010) Heartburn History of recurrent ear infection (~1969) Hyperlipidemia Hypertension Multiple lipomas Osteoarthritis Past Surgical History (Last Reviewed 04/29/21 @ 11:00 by Dionicio Perry PA-C) Anesthesia History of colonoscopy History of colonoscopy with polypectomy History of coronary angiogram (~2010) History of sinus surgery (~2017) History of tympanostomy tube placement Hx of hernia repair S/P excision of lipoma Visit Care Team Role Provider Type Ash Redmond MD Family Provider Physician Primary Care Provider Specialty: Family Practice Address: [address] [place] [address] Email: [email or web address] Lynn You PA-C Attending Provider Advanced Negative Checker Referring Provider Specialty: Medical Wound Care Address: [address] [place] [address], [facility] Email: [email or web address] Physical Therapy Initial Evaluation PT-OP-A Visit Information Start: 04/05/23 11:37 Freq: Status: Active Protocol: Document 04/05/23 16:02 [facility] (Rec: 04/05/23 16:40 [facility] [id number]) Out-Patient Physical Therapy Visit Information Visit Information Visit Type Initial Evaluation Visit Start Time 13:15 Visit Stop Time 14:10 Total Visit Minutes 55 Visit Number 1 Evaluation Information Evaluation Date 04/05/23 PT-OP-B Current Condition Start: 04/05/23 11:37 Freq: Status: Active Protocol: Document 04/05/23 16:02 [facility] (Rec: 04/05/23 16:40 [facility] [id number]) Current Condition History of Current Condition Onset Date 7 months Current Complaints left ankle pain, weakness, difficulty walking. History of Current Condition Reports while on a hike with his dog he hit a root with his foot at full speed, fell. Went to urgent care, advised to ice and rest. No improvement. MRI finally showed partial achilles tear left. Patient has been in walking boot x 1 month. Reports minimal pain but states moderate weakness, so far not able to tolerate standing or walking without the boot. Has occasional N/T in heel. Has purchased [place] shoes as recommended by physician. Hasn't tried walking with cane or trekking poles. Using Even Up on right shoe to improve walking ability in boot. Wears compression stocking most days . Wants to be able to return to hiking, walking normally. Prior Treatments and Tests no treatment. Future Testing and Treatments Planned nothing planned Treatment Goals Patient/Caregiver Goals return to full activity without restriction. 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 Baseline Function- Recreation/Hobbies hiking and fishing without difficulty Current Functional Impairments (Reported) Functional Limitations- ADL's awkward, takes more time Functional Limitations- Mobility/Gait limited by wearing walking boot Functional Limitations- Work/School retired Functional Limitations- Recreation/ hiking, fishing Hobbies PT-OP-C Subjective Start: 04/05/23 11:37 Freq: Status: Active Protocol: Document 04/05/23 16:02 [facility] (Rec: 04/05/23 16:40 [facility] [id number]) OP-PT Pain Assessment Location left achilles Intensity 1 Description Chronic,Tightness Frequency Frequent Home Pain Medication Use Pain Medications Used Yes PT-OP-D Balance Start: 04/05/23 11:37 Freq: Status: Active Protocol: Document 04/05/23 16:02 [facility] (Rec: 04/05/23 16:40 [facility] [id number]) Balance Tests Single Limb Standing Single Limb- Right 0 Single Limb- Left 10 Tandem Tandem Standing 13 left foot in back, 5 sec right foot in back PT-OP-G Mobility & Gait Start: 04/05/23 11:37 Freq: Status: Active Protocol: Document 04/05/23 16:02 [facility] (Rec: 04/05/23 16:40 [facility] [id number]) OP Gait Assessment Gait Gait Assistance Required: Independent Distance (Feet) 60 Able to Maintain Weight Bearing Status Yes During Gait Assistive Devices Assistive Device None Orthotic/Prosthetic Devices or Brace: Yes Gait Deviations General Gait Pattern Antalgic Factors Limiting Gait Function Factors Limiting Gait Function Decreased Strength,Limited Range of Motion Stair Climbing Evaluation Evaluation Level of Assist On Stairs Independent Devices Stair Climbing Assistive Devices Left Railing,Right Railing Technique/Endurance Stair Climbing Direction Ascend and Descend Stair Climbing Technique Step to Step PT-OP-J Posture/Palpation/Skin Start: 04/05/23 11:37 Freq: Status: Active Protocol: Document 04/05/23 16:02 [facility] (Rec: 04/05/23 16:40 [facility] [id number]) Palpation Assessment Location left achilles Palpation Findings Edema,Tenderness PT-OP-K Range of Motion Start: 04/05/23 11:37 Freq: Status: Active Protocol: Document 04/05/23 16:02 [facility] (Rec: 04/05/23 16:40 [facility] [id number]) Knee Goniometric Range of Motion Knee yoan Knee ROM WFL Yes Ankle and Foot Goniometric Range of Motion Ankle and Foot Left Active Ankle/Foot ROM WFL No Dorsiflexion with Knee Flexed 5 Dorsiflexion with Knee Extended 0 Right Active Ankle/Foot ROM WFL Yes Ankle and Foot ROM Limitations ROM Limitations Soft Tissue Tightness,Muscle Weakness,Swelling PT-OP-M Strength Start: 04/05/23 11:37 Freq: Status: Active Protocol: Document 04/05/23 16:02 [facility] (Rec: 04/05/23 16:40 [facility] [id number]) Knee Strength Knee Manual Muscle Testing Left Flexion (S2) 4 Good Extension (L3) 4+ Good+ Right Flexion (S2) 5 Normal Extension (L3) 5 Normal Ankle/Foot Strength Ankle and Foot Manual Muscle Testing Left Dorsiflexion (L4) 4 Good Plantarflexion (S1) 3+ Fair+ Inversion 4- Good- Eversion (S1) 3+ Fair+ Right Dorsiflexion (L4) 5 Normal Plantarflexion (S1) 5 Normal Inversion 5 Normal Eversion (S1) 5 Normal PT-OP-Q Treatments Start: 04/05/23 11:37 Freq: Status: Active Protocol: Document 04/05/23 16:02 [facility] (Rec: 04/05/23 16:40 [facility] [id number]) Manual Therapy Treatment Taping left achilles Treatment Focus support Type of Tape Kinesio Tape Skin Inspection intact Comments BioFreeze applied prior to taping. I strip proximal calf to calcaneus with 50% stretch . I strip arch 50% stretch. Self-Care/Home Management Treatment Education Patient Education Home Exercise Program Other Education issued written HO PT-OP-R Modalities Start: 04/05/23 11:37 Freq: Status: Active Protocol: Document 04/05/23 16:02 [facility] (Rec: 04/05/23 16:40 [facility] [id number]) Hot Pack/Cold Pack Treatment left achilles Treatment Duration (minutes) 10 Patient Tolerance Good PT-OP-T Assessment and Plan Start: 04/05/23 11:37 Freq: Status: Active Protocol: Document 04/05/23 16:02 [facility] (Rec: 04/05/23 16:40 [facility] [id number]) Physical Therapy Assessment Rehab Potential Rehabilitation Potential Excellent Evaluation Complexity Number of Personal Factors/Comorbidities 1-2 Number of Body Systems Impaired 3 Clinical Presentation at Evaluation Evolving Impairments Impairments Balance,Edema,Gait,Strength Goals Four Impairment edema left ankle Care Home Goal (LTG) Reduce edema left ankle to WNL to allow for improved ankle function with all usual activities LTG Duration 06/05/23 Three Impairment Gait dysfunction Short Term Goal (STG) Patient to be able to walk on level surfaces with shoes and cane or trekking poles without limp or pain STG Duration Track Leader Goal (LTG) Patient will be able to walk on all surfaces and return to hiking wearing shoes/hiking boots and using least restrictive device without limp or pain LTG Duration 06/05/23 Two Impairment Balance dysfunction Impairment SLS right 14 sec, left 0 Track Leader Goal (LTG) Patient to be able to balance on left foot for 15 sec to allow him to return to all usual activities including hiking LTG Duration 06/05/23 One Impairment weakness left achilles and ankle with atrophy left calf Short Term Goal (STG) patient to be insructed in HEP for purposes of strengthening left achilles and all ankle motions STG Duration Care Home Goal (LTG) Patient to be independent and compliant with HEP and demonstrate at least 4+/5 muscle strength left ankle all motions, and improved muscle bulk left calf. LTG Duration 06/05/23 Assessment Summary Assessment Patient presents to PT s/p hiking accident in which he suffered a partial achilles tear which went undiagnosed initially. He is currently wearing a walking boot and compression stockings. Minimal pain but significant weakness especially ankle plantarflexion with muscle atrophy in calf, decreased balance, gait dysfunction, and significant edema in ankle. Feel he will benefit from PT to help him decrease his edema and improve his strength, balance, and gait and return to prior level of function including walking, hiking, and fishing. Treatment today consisted of instruction in HEP, application of KT tape left achilles, and ice to left achilles. Patient demonstrated good understanding. POC was discussed and patient was in agreement. Physical Therapy Plan Frequency and Duration Frequency of Treatment 2x/Week Duration of treatment (weeks) 8 Plan of Care Start Date 04/05/23 Plan of Care End Date 06/05/23 Therapeutic Interventions Therapeutic Interventions Balance Training,Gait Training ,Home Exercise Program,Manual Therapy,Neuromuscular Re- education,Patient/Caregiver Education,Self-Care/Home Management,Soft Tissue Mobilization,Taping, Therapeutic Activities, Therapeutic Exercises Modalities Cold Pack/Ice Massage,Electric Stimulation,Hot Packs, Infrared Therapy,Iontophoresis ,Ultrasound Next Visit Focus/Plan Next Note Type Treatment Note Next Visit Plan Review HEP, recumbant elliptical wearing shoes. Standing weight-shifting and pre-gait activities wearing shoes. Manual therapy and modalities to decrease edema.
--- NOTE | 2023-04-05 16:41 | PT.OPPOC ---
Physical, Occupational & Speech Therapy At [facility] Current Diagnoses Primary osteoarthritis, unspecified ankle and foot (04/05/23) Strain of unspecified Achilles tendon, initial encounter (04/05/23) Visit Care Team Role Provider Type Ash Redmond MD Family Provider Physician Primary Care Provider Specialty: Family Practice Address: [address] [place] [address], [id number] Email: [email or web address] Lynn You PA-C Attending Provider Advanced Multiple Wire Sawyer Referring Provider Specialty: Medical Wound Care Address: [address] [place] [address], [id number] Email: [email or web address] Plan Of Care PT-OP-T Assessment and Plan Start: 04/05/23 11:37 Freq: Status: Active Protocol: Document 04/05/23 16:02 LEONIE (Rec: 04/05/23 16:40 [facility] [id number]) Physical Therapy Assessment Rehab Potential Rehabilitation Potential Excellent Evaluation Complexity Number of Personal Factors/Comorbidities 1-2 Number of Body Systems Impaired 3 Clinical Presentation at Evaluation Evolving Impairments Impairments Balance,Edema,Gait,Strength Goals Four Impairment edema left ankle Jail Goal (LTG) Reduce edema left ankle to WNL to allow for improved ankle function with all usual activities LTG Duration 06/05/23 Three Impairment Gait dysfunction Short Term Goal (STG) Patient to be able to walk on level surfaces with shoes and cane or trekking poles without limp or pain STG Duration Ear Mold Laboratory Technician Goal (LTG) Patient will be able to walk on all surfaces and return to hiking wearing shoes/hiking boots and using least restrictive device without limp or pain LTG Duration 06/05/23 Two Impairment Balance dysfunction Impairment SLS right 14 sec, left 0 Ear Mold Laboratory Technician Goal (LTG) Patient to be able to balance on left foot for 15 sec to allow him to return to all usual activities including hiking LTG Duration 06/05/23 One Impairment weakness left achilles and ankle with atrophy left calf Short Term Goal (STG) patient to be insructed in HEP for purposes of strengthening left achilles and all ankle motions STG Duration Ear Mold Laboratory Technician Goal (LTG) Patient to be independent and compliant with HEP and demonstrate at least 4+/5 muscle strength left ankle all motions, and improved muscle bulk left calf. LTG Duration 06/05/23 Assessment Summary Assessment Patient presents to PT s/p hiking accident in which he suffered a partial achilles tear which went undiagnosed initially. He is currently wearing a walking boot and compression stockings. Minimal pain but significant weakness especially ankle plantarflexion with muscle atrophy in calf, decreased balance, gait dysfunction, and significant edema in ankle. Feel he will benefit from PT to help him decrease his edema and improve his strength, balance, and gait and return to prior level of function including walking, hiking, and fishing. Treatment today consisted of instruction in HEP, application of KT tape left achilles, and ice to left achilles. Patient demonstrated good understanding. POC was discussed and patient was in agreement. Physical Therapy Plan Frequency and Duration Frequency of Treatment 2x/Week Duration of treatment (weeks) 8 Plan of Care Start Date 04/05/23 Plan of Care End Date 06/05/23 Therapeutic Interventions Therapeutic Interventions Balance Training,Gait Training ,Home Exercise Program,Manual Therapy,Neuromuscular Re- education,Patient/Caregiver Education,Self-Care/Home Management,Soft Tissue Mobilization,Taping, Therapeutic Activities, Therapeutic Exercises Modalities Cold Pack/Ice Massage,Electric Stimulation,Hot Packs, Infrared Therapy,Iontophoresis ,Ultrasound Next Visit Focus/Plan Next Note Type Treatment Note Next Visit Plan Review HEP, recumbant elliptical wearing shoes. Standing weight-shifting and pre-gait activities wearing shoes. Manual therapy and modalities to decrease edema. Plan of Care Dates Plan of Care Start Date 04/05/23 Plan of Care End Date 06/05/23 Electronically Signed by: Luann Adams, PT 04/05/23 5345 If you are in agreement with this Plan of Care, please return a signed and dated copy. I have reviewed this Plan of Care and certify that the skilled therapy services above are required to meet the patient?s needs. Physician Signature Date Printed Name and Credentials Clinical Instructor Signature Printed Name and Credentials
--- NOTE | 2023-04-05 16:42 | PT.OPPOC ---
Physical, Occupational & Speech Therapy At [facility] Current Diagnoses Primary osteoarthritis, unspecified ankle and foot (04/05/23) Strain of unspecified Achilles tendon, initial encounter (04/05/23) Visit Care Team Role Provider Type Ash Redmond MD Family Provider Physician Primary Care Provider Specialty: Family Practice Address: [address] [place] [address], [id number] Email: [email or web address] Lynn You PA-C Attending Provider Advanced Title Curator Referring Provider Specialty: Medical Wound Care Address: [address] [place] [address], [id number] Email: [email or web address] Plan Of Care PT-OP-T Assessment and Plan Start: 04/05/23 11:37 Freq: Status: Active Protocol: Document 04/05/23 16:02 LEONIE (Rec: 04/05/23 16:40 [facility] [id number]) Physical Therapy Assessment Rehab Potential Rehabilitation Potential Excellent Evaluation Complexity Number of Personal Factors/Comorbidities 1-2 Number of Body Systems Impaired 3 Clinical Presentation at Evaluation Evolving Impairments Impairments Balance,Edema,Gait,Strength Goals Four Impairment edema left ankle Correction Goal (LTG) Reduce edema left ankle to WNL to allow for improved ankle function with all usual activities LTG Duration 06/05/23 Three Impairment Gait dysfunction Short Term Goal (STG) Patient to be able to walk on level surfaces with shoes and cane or trekking poles without limp or pain STG Duration Plastics Tooling Engineer Goal (LTG) Patient will be able to walk on all surfaces and return to hiking wearing shoes/hiking boots and using least restrictive device without limp or pain LTG Duration 06/05/23 Two Impairment Balance dysfunction Impairment SLS right 14 sec, left 0 Plastics Tooling Engineer Goal (LTG) Patient to be able to balance on left foot for 15 sec to allow him to return to all usual activities including hiking LTG Duration 06/05/23 One Impairment weakness left achilles and ankle with atrophy left calf Short Term Goal (STG) patient to be insructed in HEP for purposes of strengthening left achilles and all ankle motions STG Duration Plastics Tooling Engineer Goal (LTG) Patient to be independent and compliant with HEP and demonstrate at least 4+/5 muscle strength left ankle all motions, and improved muscle bulk left calf. LTG Duration 06/05/23 Assessment Summary Assessment Patient presents to PT s/p hiking accident in which he suffered a partial achilles tear which went undiagnosed initially. He is currently wearing a walking boot and compression stockings. Minimal pain but significant weakness especially ankle plantarflexion with muscle atrophy in calf, decreased balance, gait dysfunction, and significant edema in ankle. Feel he will benefit from PT to help him decrease his edema and improve his strength, balance, and gait and return to prior level of function including walking, hiking, and fishing. Treatment today consisted of instruction in HEP, application of KT tape left achilles, and ice to left achilles. Patient demonstrated good understanding. POC was discussed and patient was in agreement. Physical Therapy Plan Frequency and Duration Frequency of Treatment 2x/Week Duration of treatment (weeks) 8 Plan of Care Start Date 04/05/23 Plan of Care End Date 06/05/23 Therapeutic Interventions Therapeutic Interventions Balance Training,Gait Training ,Home Exercise Program,Manual Therapy,Neuromuscular Re- education,Patient/Caregiver Education,Self-Care/Home Management,Soft Tissue Mobilization,Taping, Therapeutic Activities, Therapeutic Exercises Modalities Cold Pack/Ice Massage,Electric Stimulation,Hot Packs, Infrared Therapy,Iontophoresis ,Ultrasound Next Visit Focus/Plan Next Note Type Treatment Note Next Visit Plan Review HEP, recumbant elliptical wearing shoes. Standing weight-shifting and pre-gait activities wearing shoes. Manual therapy and modalities to decrease edema. Plan of Care Dates Plan of Care Start Date 04/05/23 Plan of Care End Date 06/05/23 Electronically Signed by: Luann Adams, PT 04/05/23 5366 If you are in agreement with this Plan of Care, please return a signed and dated copy. I have reviewed this Plan of Care and certify that the skilled therapy services above are required to meet the patient?s needs. Physician Signature Date Printed Name and Credentials Clinical Instructor Signature Printed Name and Credentials
--- NOTE | 2023-04-06 09:10 | PT.OTN ---
Current Diagnoses Primary osteoarthritis, unspecified ankle and foot (04/06/23) Strain of unspecified Achilles tendon, initial encounter (04/06/23) Physical Therapy Treatment Note PT-OP-A Visit Information Start: 04/05/23 11:37 Freq: Status: Active Protocol: Document 04/06/23 07:55 SAK (Rec: 04/06/23 08:48 [facility]AK [id number]) Out-Patient Physical Therapy Visit Information Visit Information Visit Type Treatment Note Visit Start Time 08:00 Visit Stop Time 08:55 Total Visit Minutes 56 Visit Number 2 Evaluation Information Evaluation Date 04/05/23 PT-OP-B Current Condition Start: 04/05/23 11:37 Freq: Status: Active Protocol: Document 04/06/23 07:55 SAK (Rec: 04/06/23 08:48 [facility]AK [id number]) Current Condition History of Current Condition Onset Date 7 months Current Complaints left ankle pain, weakness, difficulty walking. History of Current Condition Reports while on a hike with his dog he hit a root with his foot at full speed, fell. Went to urgent care, advised to ice and rest. No improvement. MRI finally showed partial achilles tear left. Patient has been in walking boot x 1 month. Reports minimal pain but states moderate weakness, so far not able to tolerate standing or walking without the boot. Has occasional N/T in heel. Has purchased Hoka shoes as recommended by physician. Hasn't tried walking with cane or trekking poles. Using Even Up on right shoe to improve walking ability in boot. Wears compression stocking most days . Wants to be able to return to hiking, walking normally. Prior Treatments and Tests no treatment. Future Testing and Treatments Planned nothing planned Treatment Goals Patient/Caregiver Goals return to full activity without restriction. PT-OP-C Subjective Start: 04/05/23 11:37 Freq: Status: Active Protocol: Document 04/06/23 07:55 SAK (Rec: 04/06/23 08:48 [facility]AK [id number]) OP-PT Subjective Patient Comments Patient Comments Likes the kinesiotape, feels improved support. Did HEP PT-OP-D Balance Start: 04/05/23 11:37 Freq: Status: Active Protocol: Document 04/05/23 16:02 SAK (Rec: 04/05/23 16:40 [facility]AK [id number]) Balance Tests Single Limb Standing Single Limb- Right 0 Single Limb- Left 10 Tandem Tandem Standing 13 left foot in back, 5 sec right foot in back PT-OP-G Mobility & Gait Start: 04/05/23 11:37 Freq: Status: Active Protocol: Document 04/05/23 16:02 [facility] (Rec: 04/05/23 16:40 [facility] [id number]) OP Gait Assessment Gait Gait Assistance Required: Independent Distance (Feet) 60 Able to Maintain Weight Bearing Status Yes During Gait Assistive Devices Assistive Device None Orthotic/Prosthetic Devices or Brace: Yes Gait Deviations General Gait Pattern Antalgic Factors Limiting Gait Function Factors Limiting Gait Function Decreased Strength,Limited Range of Motion Stair Climbing Evaluation Evaluation Level of Assist On Stairs Independent Devices Stair Climbing Assistive Devices Left Railing,Right Railing Technique/Endurance Stair Climbing Direction Ascend and Descend Stair Climbing Technique Step to Step PT-OP-J Posture/Palpation/Skin Start: 04/05/23 11:37 Freq: Status: Active Protocol: Document 04/05/23 16:02 [facility] (Rec: 04/05/23 16:40 [facility] [id number]) Palpation Assessment Location left achilles Palpation Findings Edema,Tenderness PT-OP-K Range of Motion Start: 04/05/23 11:37 Freq: Status: Active Protocol: Document 04/05/23 16:02 [facility] (Rec: 04/05/23 16:40 [facility] [id number]) Knee Goniometric Range of Motion Knee yoan Knee ROM WFL Yes Ankle and Foot Goniometric Range of Motion Ankle and Foot Left Active Ankle/Foot ROM WFL No Dorsiflexion with Knee Flexed 5 Dorsiflexion with Knee Extended 0 Right Active Ankle/Foot ROM WFL Yes Ankle and Foot ROM Limitations ROM Limitations Soft Tissue Tightness,Muscle Weakness,Swelling PT-OP-M Strength Start: 04/05/23 11:37 Freq: Status: Active Protocol: Document 04/05/23 16:02 [facility] (Rec: 04/05/23 16:40 [facility] [id number]) Knee Strength Knee Manual Muscle Testing Left Flexion (S2) 4 Good Extension (L3) 4+ Good+ Right Flexion (S2) 5 Normal Extension (L3) 5 Normal Ankle/Foot Strength Ankle and Foot Manual Muscle Testing Left Dorsiflexion (L4) 4 Good Plantarflexion (S1) 3+ Fair+ Inversion 4- Good- Eversion (S1) 3+ Fair+ Right Dorsiflexion (L4) 5 Normal Plantarflexion (S1) 5 Normal Inversion 5 Normal Eversion (S1) 5 Normal PT-OP-Q Treatments Start: 04/05/23 11:37 Freq: Status: Active Protocol: Document 04/06/23 07:55 [facility] (Rec: 04/06/23 08:48 [facility] [id number]) Cardio Equipment Recumbent Elliptical (Biodex) Duration (Minutes) 5 Resistance 2 Seat Position 11 Gym Equipment Shuttle Recovery Unilateral Heel Raises Reps/Time next session Bilateral Heel Raises Resistance 37 Shuttle Recovery Platform Stable Reps/Time 10x Unilateral Squats Reps/Time next session Bilateral Squats Resistance 50 Shuttle Recovery Platform Stable Reps/Time 10x Therapeutic Exercises Sitting Exercises resisted ankle Sitting Exercise Name df/pf/inv/ev Equipment Used L1 TB (PT holding) Reps/Minutes 10x Gait Training Gait Activity SPC Device Used SPC Level of Assistance cues Surface firm Distance/Duration 20'x3 Treatment Focus correct use for offloading left achilles Manual Therapy Treatment Soft Tissue Mobilization L achilles Body Location medial and lateral to tendon Mobilization Type Strumming Intensity/Depth mod Body Position sitting with foot over edge of treatment table Taping left achilles Treatment Focus support Type of Tape Kinesio Tape Skin Inspection intact Comments KT tape intact from yesterday. added I strip 50% stretch mid achilles area of palpable defect and scar tissue Neuro Re-Education Treatment Balance Activities tandem stand Details EO, EC Surface firm Reps/Duration 2 min tiltboard Details bal f/b and side, wt shift f/b Surface tiltboard Reps/Duration 4 min foam stand Details EO, EC, head turns Surface compliant Equipment blue foam Reps/Duration 2 min Self-Care/Home Management Treatment Education Patient Education Home Exercise Program Other Education updated HEP PT-OP-R Modalities Start: 04/05/23 11:37 Freq: Status: Active Protocol: Document 04/06/23 07:55 [facility] (Rec: 04/06/23 08:57 [facility] [id number]) Hot Pack/Cold Pack Treatment left achilles Treatment Duration (minutes) 10 Patient Tolerance Good PT-OP-T Assessment and Plan Start: 04/05/23 11:37 Freq: Status: Active Protocol: Document 04/06/23 07:55 [facility] (Rec: 04/06/23 08:48 [facility] [id number]) Physical Therapy Assessment Impairments Impairments Balance,Edema,Gait,Strength Goals Four Impairment edema left ankle Halfway Goal (LTG) Reduce edema left ankle to WNL to allow for improved ankle function with all usual activities LTG Duration 06/05/23 Three Impairment Gait dysfunction Short Term Goal (STG) Patient to be able to walk on level surfaces with shoes and cane or trekking poles without limp or pain STG Duration Halfway Goal (LTG) Patient will be able to walk on all surfaces and return to hiking wearing shoes/hiking boots and using least restrictive device without limp or pain LTG Duration 06/05/23 Two Impairment Balance dysfunction Impairment SLS right 14 sec, left 0 Senior Net C Developer Goal (LTG) Patient to be able to balance on left foot for 15 sec to allow him to return to all usual activities including hiking LTG Duration 06/05/23 One Impairment weakness left achilles and ankle with atrophy left calf Short Term Goal (STG) patient to be insructed in HEP for purposes of strengthening left achilles and all ankle motions STG Duration Senior Net C Developer Goal (LTG) Patient to be independent and compliant with HEP and demonstrate at least 4+/5 muscle strength left ankle all motions, and improved muscle bulk left calf. LTG Duration 06/05/23 Assessment Summary Assessment Patient wore Hoka's to PT, cautioned not to go totally without walking boot initially ; gradually wean off as tolerated. Good tolerance for ther ex, progressed to standing balance ex and patient instructed in use of SPC/trekking pole for improved gait and support left achilles. Patient gait characterized by excessive heelstrike left; patient educated for equal step length and stance time with less heelstrike to dec stress to achilles. HEP updated. Physical Therapy Plan Frequency and Duration Frequency of Treatment 2x/Week Duration of treatment (weeks) 8 Plan of Care Start Date 04/05/23 Plan of Care End Date 06/05/23 Therapeutic Interventions Therapeutic Interventions Balance Training,Gait Training ,Home Exercise Program,Manual Therapy,Neuromuscular Re- education,Patient/Caregiver Education,Self-Care/Home Management,Soft Tissue Mobilization,Taping, Therapeutic Activities, Therapeutic Exercises Modalities Cold Pack/Ice Massage,Electric Stimulation,Hot Packs, Infrared Therapy,Iontophoresis ,Ultrasound Next Visit Focus/Plan Next Note Type Treatment Note Next Visit Plan Continue progression of ther ex for neuro re-ed and strengthening. Pre-gait and gait activities. KT tape and ice.
--- NOTE | 2023-04-11 17:49 | PT.OTN ---
Current Diagnoses Primary osteoarthritis, unspecified ankle and foot (04/11/23) Strain of unspecified Achilles tendon, initial encounter (04/11/23) Physical Therapy Treatment Note PT-OP-A Visit Information Start: 04/05/23 11:37 Freq: Status: Active Protocol: Document 04/11/23 10:32 SAK (Rec: 04/11/23 11:16 SAK [id number]) Out-Patient Physical Therapy Visit Information Visit Information Visit Type Treatment Note Visit Start Time 10:32 Visit Stop Time 11:31 Total Visit Minutes 59 Visit Number 3 Evaluation Information Evaluation Date 04/05/23 PT-OP-B Current Condition Start: 04/05/23 11:37 Freq: Status: Active Protocol: Document 04/11/23 10:32 SAK (Rec: 04/11/23 11:16 SAK [id number]) Current Condition History of Current Condition Onset Date 7 months Current Complaints left ankle pain, weakness, difficulty walking. History of Current Condition Reports while on a hike with his dog he hit a root with his foot at full speed, fell. Went to urgent care, advised to ice and rest. No improvement. MRI finally showed partial achilles tear left. Patient has been in walking boot x 1 month. Reports minimal pain but states moderate weakness, so far not able to tolerate standing or walking without the boot. Has occasional N/T in heel. Has purchased [place] shoes as recommended by physician. Hasn't tried walking with cane or trekking poles. Using Even Up on right shoe to improve walking ability in boot. Wears compression stocking most days . Wants to be able to return to hiking, walking normally. Prior Treatments and Tests no treatment. Future Testing and Treatments Planned nothing planned Treatment Goals Patient/Caregiver Goals return to full activity without restriction. PT-OP-C Subjective Start: 04/05/23 11:37 Freq: Status: Active Protocol: Document 04/11/23 10:32 SAK (Rec: 04/11/23 11:16 SAK [id number]) OP-PT Subjective Patient Comments Patient Comments Sore after PT, has gone back to wearing boot some of the time, working toward weaning off. PT-OP-D Balance Start: 04/05/23 11:37 Freq: Status: Active Protocol: Document 04/05/23 16:02 SAK (Rec: 04/05/23 16:40 SAK [id number]) Balance Tests Single Limb Standing Single Limb- Right 0 Single Limb- Left 10 Tandem Tandem Standing 13 left foot in back, 5 sec right foot in back PT-OP-G Mobility & Gait Start: 04/05/23 11:37 Freq: Status: Active Protocol: Document 04/05/23 16:02 [facility] (Rec: 04/05/23 16:40 [facility] [id number]) OP Gait Assessment Gait Gait Assistance Required: Independent Distance (Feet) 60 Able to Maintain Weight Bearing Status Yes During Gait Assistive Devices Assistive Device None Orthotic/Prosthetic Devices or Brace: Yes Gait Deviations General Gait Pattern Antalgic Factors Limiting Gait Function Factors Limiting Gait Function Decreased Strength,Limited Range of Motion Stair Climbing Evaluation Evaluation Level of Assist On Stairs Independent Devices Stair Climbing Assistive Devices Left Railing,Right Railing Technique/Endurance Stair Climbing Direction Ascend and Descend Stair Climbing Technique Step to Step PT-OP-J Posture/Palpation/Skin Start: 04/05/23 11:37 Freq: Status: Active Protocol: Document 04/05/23 16:02 [facility] (Rec: 04/05/23 16:40 [facility] [id number]) Palpation Assessment Location left achilles Palpation Findings Edema,Tenderness PT-OP-K Range of Motion Start: 04/05/23 11:37 Freq: Status: Active Protocol: Document 04/05/23 16:02 [facility] (Rec: 04/05/23 16:40 [facility] [id number]) Knee Goniometric Range of Motion Knee yoan Knee ROM WFL Yes Ankle and Foot Goniometric Range of Motion Ankle and Foot Left Active Ankle/Foot ROM WFL No Dorsiflexion with Knee Flexed 5 Dorsiflexion with Knee Extended 0 Right Active Ankle/Foot ROM WFL Yes Ankle and Foot ROM Limitations ROM Limitations Soft Tissue Tightness,Muscle Weakness,Swelling PT-OP-M Strength Start: 04/05/23 11:37 Freq: Status: Active Protocol: Document 04/05/23 16:02 [facility] (Rec: 04/05/23 16:40 [facility] [id number]) Knee Strength Knee Manual Muscle Testing Left Flexion (S2) 4 Good Extension (L3) 4+ Good+ Right Flexion (S2) 5 Normal Extension (L3) 5 Normal Ankle/Foot Strength Ankle and Foot Manual Muscle Testing Left Dorsiflexion (L4) 4 Good Plantarflexion (S1) 3+ Fair+ Inversion 4- Good- Eversion (S1) 3+ Fair+ Right Dorsiflexion (L4) 5 Normal Plantarflexion (S1) 5 Normal Inversion 5 Normal Eversion (S1) 5 Normal PT-OP-Q Treatments Start: 04/05/23 11:37 Freq: Status: Active Protocol: Document 04/11/23 10:32 [facility] (Rec: 04/11/23 11:16 [facility] [id number]) Cardio Equipment Recumbent Elliptical (Biodex) Duration (Minutes) 7 Resistance 2 Seat Position 11 Gym Equipment Shuttle Recovery Unilateral Heel Raises Resistance 12 Shuttle Recovery Platform Stable Reps/Time 10x Bilateral Heel Raises Resistance 37 Shuttle Recovery Platform Stable Reps/Time 10x Unilateral Squats Resistance 37 Reps/Time 10x Bilateral Squats Resistance 50 Shuttle Recovery Platform Stable Reps/Time 10x Manual Therapy Treatment Soft Tissue Mobilization L achilles Body Location medial and lateral to tendon Mobilization Type Strumming Intensity/Depth mod Body Position Prone Taping left achilles Treatment Focus support Type of Tape Kinesio Tape Skin Inspection intact Comments KT tape intact from yesterday. added I strip 50% stretch mid achilles area of palpable defect and scar tissue Neuro Re-Education Treatment Balance Activities tandem stand Details EO, EC Surface firm Reps/Duration 2 min tiltboard Details bal f/b and side, wt shift f/b Surface tiltboard Reps/Duration 4 min foam stand Details EO, EC, head turns Surface compliant Equipment blue foam Reps/Duration 2 min PT-OP-R Modalities Start: 04/05/23 11:37 Freq: Status: Active Protocol: Document 04/06/23 07:55 [facility] (Rec: 04/06/23 08:57 [facility] [id number]) Hot Pack/Cold Pack Treatment left achilles Treatment Duration (minutes) 10 Patient Tolerance Good PT-OP-T Assessment and Plan Start: 04/05/23 11:37 Freq: Status: Active Protocol: Document 04/11/23 10:32 SAK (Rec: 04/11/23 11:16 [facility] [id number]) Physical Therapy Assessment Impairments Impairments Balance,Edema,Gait,Strength Goals Four Impairment edema left ankle Yeast Maker Goal (LTG) Reduce edema left ankle to WNL to allow for improved ankle function with all usual activities LTG Duration 06/05/23 Three Impairment Gait dysfunction Short Term Goal (STG) Patient to be able to walk on level surfaces with shoes and cane or trekking poles without limp or pain STG Duration Yeast Maker Goal (LTG) Patient will be able to walk on all surfaces and return to hiking wearing shoes/hiking boots and using least restrictive device without limp or pain LTG Duration 06/05/23 Two Impairment Balance dysfunction Impairment SLS right 14 sec, left 0 Yeast Maker Goal (LTG) Patient to be able to balance on left foot for 15 sec to allow him to return to all usual activities including hiking LTG Duration 06/05/23 One Impairment weakness left achilles and ankle with atrophy left calf Short Term Goal (STG) patient to be insructed in HEP for purposes of strengthening left achilles and all ankle motions STG Duration Yeast Maker Goal (LTG) Patient to be independent and compliant with HEP and demonstrate at least 4+/5 muscle strength left ankle all motions, and improved muscle bulk left calf. LTG Duration 06/05/23 Assessment Summary Assessment Patient wearing walking boot today, agreeeable to gradual weaning, reports soreness but not pain after last PT session. Agreed to wear compression stockings due to persistent swelling in left ankle. Good tolerance for progression of shuttle recovery machine. Physical Therapy Plan Frequency and Duration Frequency of Treatment 2x/Week Duration of treatment (weeks) 8 Plan of Care Start Date 04/05/23 Plan of Care End Date 06/05/23 Therapeutic Interventions Therapeutic Interventions Balance Training,Gait Training ,Home Exercise Program,Manual Therapy,Neuromuscular Re- education,Patient/Caregiver Education,Self-Care/Home Management,Soft Tissue Mobilization,Taping, Therapeutic Activities, Therapeutic Exercises Modalities Cold Pack/Ice Massage,Electric Stimulation,Hot Packs, Infrared Therapy,Iontophoresis ,Ultrasound Next Visit Focus/Plan Next Note Type Treatment Note Next Visit Plan Continue progression of ther ex for neuro re-ed and strengthening. Pre-gait and gait activities. KT tape and ice.
--- NOTE | 2023-04-19 16:28 | PT.OTN ---
Current Diagnoses Primary osteoarthritis, unspecified ankle and foot (04/19/23) Strain of unspecified Achilles tendon, initial encounter (04/19/23) Physical Therapy Treatment Note PT-OP-A Visit Information Start: 04/05/23 11:37 Freq: Status: Active Protocol: Document 04/19/23 15:10 SAK (Rec: 04/19/23 16:28 [facility] [id number]) Out-Patient Physical Therapy Visit Information Visit Information Visit Type Treatment Note Visit Start Time 15:11 Total Visit Minutes 59 Visit Number 4 Evaluation Information Evaluation Date 04/05/23 PT-OP-B Current Condition Start: 04/05/23 11:37 Freq: Status: Active Protocol: Document 04/19/23 15:10 SAK (Rec: 04/19/23 16:28 SAK [id number]) Current Condition History of Current Condition Onset Date 7 months Current Complaints left ankle pain, weakness, difficulty walking. History of Current Condition Reports while on a hike with his dog he hit a root with his foot at full speed, fell. Went to urgent care, advised to ice and rest. No improvement. MRI finally showed partial achilles tear left. Patient has been in walking boot x 1 month. Reports minimal pain but states moderate weakness, so far not able to tolerate standing or walking without the boot. Has occasional N/T in heel. Has purchased [place] shoes as recommended by physician. Hasn't tried walking with cane or trekking poles. Using Even Up on right shoe to improve walking ability in boot. Wears compression stocking most days . Wants to be able to return to hiking, walking normally. Prior Treatments and Tests no treatment. Future Testing and Treatments Planned nothing planned Treatment Goals Patient/Caregiver Goals return to full activity without restriction. PT-OP-C Subjective Start: 04/05/23 11:37 Freq: Status: Active Protocol: Document 04/19/23 15:10 SAK (Rec: 04/19/23 16:28 [facility] [id number]) OP-PT Subjective Patient Comments Patient Comments Not going backward but not getting better. Wearing tennis shoes some. No pain. PT-OP-D Balance Start: 04/05/23 11:37 Freq: Status: Active Protocol: Document 04/05/23 16:02 SAK (Rec: 04/05/23 16:40 SAK [id number]) Balance Tests Single Limb Standing Single Limb- Right 0 Single Limb- Left 10 Tandem Tandem Standing 13 left foot in back, 5 sec right foot in back PT-OP-G Mobility & Gait Start: 04/05/23 11:37 Freq: Status: Active Protocol: Document 04/05/23 16:02 [facility] (Rec: 04/05/23 16:40 [facility] [id number]) OP Gait Assessment Gait Gait Assistance Required: Independent Distance (Feet) 60 Able to Maintain Weight Bearing Status Yes During Gait Assistive Devices Assistive Device None Orthotic/Prosthetic Devices or Brace: Yes Gait Deviations General Gait Pattern Antalgic Factors Limiting Gait Function Factors Limiting Gait Function Decreased Strength,Limited Range of Motion Stair Climbing Evaluation Evaluation Level of Assist On Stairs Independent Devices Stair Climbing Assistive Devices Left Railing,Right Railing Technique/Endurance Stair Climbing Direction Ascend and Descend Stair Climbing Technique Step to Step PT-OP-J Posture/Palpation/Skin Start: 04/05/23 11:37 Freq: Status: Active Protocol: Document 04/05/23 16:02 [facility] (Rec: 04/05/23 16:40 [facility] [id number]) Palpation Assessment Location left achilles Palpation Findings Edema,Tenderness PT-OP-K Range of Motion Start: 04/05/23 11:37 Freq: Status: Active Protocol: Document 04/05/23 16:02 [facility] (Rec: 04/05/23 16:40 [facility] [id number]) Knee Goniometric Range of Motion Knee yoan Knee ROM WFL Yes Ankle and Foot Goniometric Range of Motion Ankle and Foot Left Active Ankle/Foot ROM WFL No Dorsiflexion with Knee Flexed 5 Dorsiflexion with Knee Extended 0 Right Active Ankle/Foot ROM WFL Yes Ankle and Foot ROM Limitations ROM Limitations Soft Tissue Tightness,Muscle Weakness,Swelling PT-OP-M Strength Start: 04/05/23 11:37 Freq: Status: Active Protocol: Document 04/05/23 16:02 [facility] (Rec: 04/05/23 16:40 [facility] [id number]) Knee Strength Knee Manual Muscle Testing Left Flexion (S2) 4 Good Extension (L3) 4+ Good+ Right Flexion (S2) 5 Normal Extension (L3) 5 Normal Ankle/Foot Strength Ankle and Foot Manual Muscle Testing Left Dorsiflexion (L4) 4 Good Plantarflexion (S1) 3+ Fair+ Inversion 4- Good- Eversion (S1) 3+ Fair+ Right Dorsiflexion (L4) 5 Normal Plantarflexion (S1) 5 Normal Inversion 5 Normal Eversion (S1) 5 Normal PT-OP-Q Treatments Start: 04/05/23 11:37 Freq: Status: Active Protocol: Document 04/19/23 15:10 [facility] (Rec: 04/19/23 16:28 [facility] [id number]) Cardio Equipment Recumbent Elliptical (Biodex) Duration (Minutes) 8 Resistance 2 Seat Position 12 Gym Equipment Shuttle Recovery Unilateral Heel Raises Resistance 12 Shuttle Recovery Platform Stable Reps/Time 10x Bilateral Heel Raises Resistance 37 Shuttle Recovery Platform Stable Reps/Time 10x Unilateral Squats Resistance 37 Reps/Time 10x Bilateral Squats Resistance 50 Shuttle Recovery Platform Stable Reps/Time 10x Shuttle Balance chains red Details bal and wt shift f/b, side EO Therapeutic Exercises Sitting Exercises resisted ankle Sitting Exercise Name df/pf/inv/ev Equipment Used L2 TB (PT holding) Reps/Minutes 10x Standing Exercises heel raises Reps/Minutes 10x SLS Reps/Minutes 3x ea Comments 10 sec right, 3 sec left pre-gait heel-off Reps/Minutes 10x2 Comments emphasis on feeling calf muscles activate and push off Manual Therapy Treatment Soft Tissue Mobilization L achilles Body Location medial and lateral to tendon Mobilization Type Strumming Intensity/Depth mod Body Position Prone Taping left achilles Treatment Focus support Type of Tape Kinesio Tape Skin Inspection intact Comments KT tape intact from yesterday. added I strip 50% stretch mid achilles area of palpable defect and scar tissue Neuro Re-Education Treatment Balance Activities foam walk Details blue, green, black foam Equipment parallel bars Reps/Duration 6x 10 Comments cues for left foot straight ahead, slow and controlled BOSU stand Details EO balance Equipment BOSU Reps/Duration 3 min tandem stand Details EO, EC Surface firm Reps/Duration 2 min tiltboard Details bal f/b and side, wt shift f/b Surface tiltboard Reps/Duration 4 min foam stand Details EO, EC, head turns Surface compliant Equipment blue foam Reps/Duration 2 min Self-Care/Home Management Treatment Education Patient Education Home Exercise Program Other Education updated HEP PT-OP-R Modalities Start: 04/05/23 11:37 Freq: Status: Active Protocol: Document 04/06/23 07:55 [facility] (Rec: 04/06/23 08:57 [facility] [id number]) Hot Pack/Cold Pack Treatment left achilles Treatment Duration (minutes) 10 Patient Tolerance Good PT-OP-T Assessment and Plan Start: 04/05/23 11:37 Freq: Status: Active Protocol: Document 04/19/23 15:10 [facility] (Rec: 04/19/23 16:28 [facility] [id number]) Physical Therapy Assessment Impairments Impairments Balance,Edema,Gait,Strength Goals Four Impairment edema left ankle Snf Goal (LTG) Reduce edema left ankle to WNL to allow for improved ankle function with all usual activities LTG Duration 06/05/23 Three Impairment Gait dysfunction Short Term Goal (STG) Patient to be able to walk on level surfaces with shoes and cane or trekking poles without limp or pain STG Duration Snf Goal (LTG) Patient will be able to walk on all surfaces and return to hiking wearing shoes/hiking boots and using least restrictive device without limp or pain LTG Duration 06/05/23 Two Impairment Balance dysfunction Impairment SLS right 14 sec, left 0 Snf Goal (LTG) Patient to be able to balance on left foot for 15 sec to allow him to return to all usual activities including hiking LTG Duration 06/05/23 One Impairment weakness left achilles and ankle with atrophy left calf Short Term Goal (STG) patient to be insructed in HEP for purposes of strengthening left achilles and all ankle motions STG Duration Snf Goal (LTG) Patient to be independent and compliant with HEP and demonstrate at least 4+/5 muscle strength left ankle all motions, and improved muscle bulk left calf. LTG Duration 06/05/23 Assessment Summary Assessment Patient with good compliance to HEP, Improved pf strength with MMT but functionally difficulty with push off phase of gait. Further weaning from boot and progression of closed chain HEP. Physical Therapy Plan Frequency and Duration Frequency of Treatment 2x/Week Duration of treatment (weeks) 8 Plan of Care Start Date 04/05/23 Plan of Care End Date 06/05/23 Therapeutic Interventions Therapeutic Interventions Balance Training,Gait Training ,Home Exercise Program,Manual Therapy,Neuromuscular Re- education,Patient/Caregiver Education,Self-Care/Home Management,Soft Tissue Mobilization,Taping, Therapeutic Activities, Therapeutic Exercises Modalities Cold Pack/Ice Massage,Electric Stimulation,Hot Packs, Infrared Therapy,Iontophoresis ,Ultrasound Next Visit Focus/Plan Next Note Type Treatment Note Next Visit Plan Continue progression of ther ex for neuro re-ed and strengthening. Pre-gait and gait activities. KT tape and ice.
--- NOTE | 2023-04-26 09:42 | PT.OTN ---
Current Diagnoses Primary osteoarthritis, unspecified ankle and foot (04/26/23) Strain of unspecified Achilles tendon, initial encounter (04/26/23) Physical Therapy Treatment Note PT-OP-A Visit Information Start: 04/05/23 11:37 Freq: Status: Active Protocol: Document 04/26/23 08:10 SAK (Rec: 04/26/23 09:03 SAK [id number]) Out-Patient Physical Therapy Visit Information Visit Information Visit Type Treatment Note Visit Start Time 08:15 Visit Stop Time 09:10 Total Visit Minutes 55 Visit Number 5 Evaluation Information Evaluation Date 04/05/23 PT-OP-B Current Condition Start: 04/05/23 11:37 Freq: Status: Active Protocol: Document 04/26/23 08:10 SAK (Rec: 04/26/23 09:03 SAK [id number]) Current Condition History of Current Condition Onset Date 7 months Current Complaints left ankle pain, weakness, difficulty walking. History of Current Condition Reports while on a hike with his dog he hit a root with his foot at full speed, fell. Went to urgent care, advised to ice and rest. No improvement. MRI finally showed partial achilles tear left. Patient has been in walking boot x 1 month. Reports minimal pain but states moderate weakness, so far not able to tolerate standing or walking without the boot. Has occasional N/T in heel. Has purchased [employer] shoes as recommended by physician. Hasn't tried walking with cane or trekking poles. Using Even Up on right shoe to improve walking ability in boot. Wears compression stocking most days . Wants to be able to return to hiking, walking normally. Prior Treatments and Tests no treatment. Future Testing and Treatments Planned nothing planned Treatment Goals Patient/Caregiver Goals return to full activity without restriction. PT-OP-C Subjective Start: 04/05/23 11:37 Freq: Status: Active Protocol: Document 04/26/23 08:10 SAK (Rec: 04/26/23 09:03 SAK [id number]) OP-PT Subjective Patient Comments Patient Comments REports increased activity yesterday > increased swelling , didn't go down with ice like usual, though also not elevated as much last night. Forgot to put on compression stocking this am. Has weaned off of wearing walking boot. PT-OP-D Balance Start: 04/05/23 11:37 Freq: Status: Active Protocol: Document 04/05/23 16:02 [facility] (Rec: 04/05/23 16:40 [facility] [id number]) Balance Tests Single Limb Standing Single Limb- Right 0 Single Limb- Left 10 Tandem Tandem Standing 13 left foot in back, 5 sec right foot in back PT-OP-G Mobility & Gait Start: 04/05/23 11:37 Freq: Status: Active Protocol: Document 04/05/23 16:02 [facility] (Rec: 04/05/23 16:40 [facility] [id number]) OP Gait Assessment Gait Gait Assistance Required: Independent Distance (Feet) 60 Able to Maintain Weight Bearing Status Yes During Gait Assistive Devices Assistive Device None Orthotic/Prosthetic Devices or Brace: Yes Gait Deviations General Gait Pattern Antalgic Factors Limiting Gait Function Factors Limiting Gait Function Decreased Strength,Limited Range of Motion Stair Climbing Evaluation Evaluation Level of Assist On Stairs Independent Devices Stair Climbing Assistive Devices Left Railing,Right Railing Technique/Endurance Stair Climbing Direction Ascend and Descend Stair Climbing Technique Step to Step PT-OP-J Posture/Palpation/Skin Start: 04/05/23 11:37 Freq: Status: Active Protocol: Document 04/05/23 16:02 [facility] (Rec: 04/05/23 16:40 [facility] [id number]) Palpation Assessment Location left achilles Palpation Findings Edema,Tenderness PT-OP-K Range of Motion Start: 04/05/23 11:37 Freq: Status: Active Protocol: Document 04/05/23 16:02 [facility] (Rec: 04/05/23 16:40 [facility] [id number]) Knee Goniometric Range of Motion Knee yoan Knee ROM WFL Yes Ankle and Foot Goniometric Range of Motion Ankle and Foot Left Active Ankle/Foot ROM WFL No Dorsiflexion with Knee Flexed 5 Dorsiflexion with Knee Extended 0 Right Active Ankle/Foot ROM WFL Yes Ankle and Foot ROM Limitations ROM Limitations Soft Tissue Tightness,Muscle Weakness,Swelling PT-OP-M Strength Start: 04/05/23 11:37 Freq: Status: Active Protocol: Document 04/05/23 16:02 [facility] (Rec: 04/05/23 16:40 [facility] [id number]) Knee Strength Knee Manual Muscle Testing Left Flexion (S2) 4 Good Extension (L3) 4+ Good+ Right Flexion (S2) 5 Normal Extension (L3) 5 Normal Ankle/Foot Strength Ankle and Foot Manual Muscle Testing Left Dorsiflexion (L4) 4 Good Plantarflexion (S1) 3+ Fair+ Inversion 4- Good- Eversion (S1) 3+ Fair+ Right Dorsiflexion (L4) 5 Normal Plantarflexion (S1) 5 Normal Inversion 5 Normal Eversion (S1) 5 Normal PT-OP-Q Treatments Start: 04/05/23 11:37 Freq: Status: Active Protocol: Document 04/26/23 08:10 [facility] (Rec: 04/26/23 09:03 [facility] [id number]) Cardio Equipment Bicycle (Upright) Duration (Minutes) 9 Resistance 4-7 Seat Position 8 Other cues for ankle df/pf, circular motion. Gym Equipment Shuttle Recovery Unilateral Heel Raises Resistance 12 Shuttle Recovery Platform Stable Reps/Time 10x2 Bilateral Heel Raises Details cues for 50:50 Resistance 37 Shuttle Recovery Platform Stable Reps/Time 10x2 Shuttle Balance chains red Details bal and wt shift f/b, side EO Comments cues for equal weight bearing Therapeutic Exercises Sitting Exercises resisted ankle Sitting Exercise Name HEP Standing Exercises heel raises Comments reports feels 70:30 right: left SLS Standing Exercise Name blue foam Reps/Minutes 3x ea Comments 15 sec right, 6 sec left pre-gait heel-off Standing Exercise Name HEP review Reps/Minutes 10x2 Comments emphasis on feeling calf muscles activate and push off Gait Training Gait Activity mirror Device Used none Level of Assistance SBA, cues Surface firm Distance/Duration 5 min Treatment Focus mirror for visual feedback; dec compensation, equalize step length Comments emphasis on push-off phase of gait Manual Therapy Treatment Soft Tissue Mobilization gastroc Body Location left calf Mobilization Type Myofascial Release,Strumming Intensity/Depth Deep Body Position Prone L achilles Body Location medial and lateral to tendon Mobilization Type Cross-Friction,Myofascial Release,Strumming Intensity/Depth Deep Body Position Prone Taping left achilles Treatment Focus support Type of Tape Kinesio Tape Skin Inspection intact Comments I strip from heel distal to MTP 25% stretch, heel along achilles to proximal calf 50% stretch. I strip arch 50% stretch I strip mid achilles 50% stretch horizontal Neuro Re-Education Treatment Balance Activities BOSU stand Details EO balance Equipment BOSU Reps/Duration 4 min tandem stand Details HEP foam stand Details SLS EO Surface compliant Equipment blue foam Reps/Duration 2 min x 2 Self-Care/Home Management Treatment Activities Self-Care/Home Management Activities emphasis on gait with equal step length, dec stride length , focus on push off phase of gait PT-OP-R Modalities Start: 04/05/23 11:37 Freq: Status: Active Protocol: Document 04/06/23 07:55 [facility] (Rec: 04/06/23 08:57 [facility] [id number]) Hot Pack/Cold Pack Treatment left achilles Treatment Duration (minutes) 10 Patient Tolerance Good PT-OP-T Assessment and Plan Start: 04/05/23 11:37 Freq: Status: Active Protocol: Document 04/26/23 08:10 [facility] (Rec: 04/26/23 09:03 [facility] [id number]) Physical Therapy Assessment Impairments Impairments Balance,Edema,Gait,Strength Goals Four Impairment edema left ankle Construction Sales Manager Goal (LTG) Reduce edema left ankle to WNL to allow for improved ankle function with all usual activities LTG Duration 06/05/23 Three Impairment Gait dysfunction Short Term Goal (STG) Patient to be able to walk on level surfaces with shoes and cane or trekking poles without limp or pain STG Duration Senior Care Goal (LTG) Patient will be able to walk on all surfaces and return to hiking wearing shoes/hiking boots and using least restrictive device without limp or pain LTG Duration 06/05/23 Two Impairment Balance dysfunction Impairment SLS right 14 sec, left 0 Construction Sales Manager Goal (LTG) Patient to be able to balance on left foot for 15 sec to allow him to return to all usual activities including hiking LTG Duration 06/05/23 One Impairment weakness left achilles and ankle with atrophy left calf Short Term Goal (STG) patient to be insructed in HEP for purposes of strengthening left achilles and all ankle motions STG Duration Construction Sales Manager Goal (LTG) Patient to be independent and compliant with HEP and demonstrate at least 4+/5 muscle strength left ankle all motions, and improved muscle bulk left calf. LTG Duration 06/05/23 Assessment Summary Assessment Patient has weaned off boot but demnstrating limp with dec stance time left, dec push off left; able to dec compensation about 50% with use of mirror. Recommend continued use of cane or trekking pole to eliminate limp. Physical Therapy Plan Frequency and Duration Frequency of Treatment 2x/Week Duration of treatment (weeks) 8 Plan of Care Start Date 04/05/23 Plan of Care End Date 06/05/23 Therapeutic Interventions Therapeutic Interventions Balance Training,Gait Training ,Home Exercise Program,Manual Therapy,Neuromuscular Re- education,Patient/Caregiver Education,Self-Care/Home Management,Soft Tissue Mobilization,Taping, Therapeutic Activities, Therapeutic Exercises Modalities Cold Pack/Ice Massage,Electric Stimulation,Hot Packs, Infrared Therapy,Iontophoresis ,Ultrasound Next Visit Focus/Plan Next Note Type Treatment Note Next Visit Plan Continue progression of ther ex for neuro re-ed and strengthening. Pre-gait and gait activities. Add sport cord all directions but emphasis fwd with push off. KT tape and ice.
--- NOTE | 2023-05-04 09:38 | PT.OTN ---
Current Diagnoses Primary osteoarthritis, unspecified ankle and foot (05/04/23) Strain of unspecified Achilles tendon, initial encounter (05/04/23) Physical Therapy Treatment Note PT-OP-A Visit Information Start: 04/05/23 11:37 Freq: Status: Active Protocol: Document 05/04/23 08:45 SAK (Rec: 05/04/23 09:38 [facility] [id number]) Out-Patient Physical Therapy Visit Information Visit Information Visit Type Treatment Note Visit Start Time 08:45 Visit Stop Time 09:10 Total Visit Minutes 55 Visit Number 6 Evaluation Information Evaluation Date 04/05/23 PT-OP-B Current Condition Start: 04/05/23 11:37 Freq: Status: Active Protocol: Document 05/04/23 08:45 SAK (Rec: 05/04/23 09:38 [facility] [id number]) Current Condition History of Current Condition Onset Date 7 months Current Complaints left ankle pain, weakness, difficulty walking. History of Current Condition Reports while on a hike with his dog he hit a root with his foot at full speed, fell. Went to urgent care, advised to ice and rest. No improvement. MRI finally showed partial achilles tear left. Patient has been in walking boot x 1 month. Reports minimal pain but states moderate weakness, so far not able to tolerate standing or walking without the boot. Has occasional N/T in heel. Has purchased [employer] shoes as recommended by physician. Hasn't tried walking with cane or trekking poles. Using Even Up on right shoe to improve walking ability in boot. Wears compression stocking most days . Wants to be able to return to hiking, walking normally. Prior Treatments and Tests no treatment. Future Testing and Treatments Planned nothing planned PT-OP-C Subjective Start: 04/05/23 11:37 Freq: Status: Active Protocol: Document 05/04/23 08:45 SAK (Rec: 05/04/23 09:38 [facility] [id number]) OP-PT Subjective Patient Comments Patient Comments Feel gradually getting stronger. Walking pavement only, no trails. Compliant to HEP. Walks up to 2 miles. PT-OP-D Balance Start: 04/05/23 11:37 Freq: Status: Active Protocol: Document 04/05/23 16:02 SAK (Rec: 04/05/23 16:40 SAK [id number]) Balance Tests Single Limb Standing Single Limb- Right 0 Single Limb- Left 10 Tandem Tandem Standing 13 left foot in back, 5 sec right foot in back PT-OP-G Mobility & Gait Start: 04/05/23 11:37 Freq: Status: Active Protocol: Document 04/05/23 16:02 [facility] (Rec: 04/05/23 16:40 [facility] [id number]) OP Gait Assessment Gait Gait Assistance Required: Independent Distance (Feet) 60 Able to Maintain Weight Bearing Status Yes During Gait Assistive Devices Assistive Device None Orthotic/Prosthetic Devices or Brace: Yes Gait Deviations General Gait Pattern Antalgic Factors Limiting Gait Function Factors Limiting Gait Function Decreased Strength,Limited Range of Motion Stair Climbing Evaluation Evaluation Level of Assist On Stairs Independent Devices Stair Climbing Assistive Devices Left Railing,Right Railing Technique/Endurance Stair Climbing Direction Ascend and Descend Stair Climbing Technique Step to Step PT-OP-J Posture/Palpation/Skin Start: 04/05/23 11:37 Freq: Status: Active Protocol: Document 04/05/23 16:02 [facility] (Rec: 04/05/23 16:40 [facility] [id number]) Palpation Assessment Location left achilles Palpation Findings Edema,Tenderness PT-OP-K Range of Motion Start: 04/05/23 11:37 Freq: Status: Active Protocol: Document 04/05/23 16:02 [facility] (Rec: 04/05/23 16:40 [facility] [id number]) Knee Goniometric Range of Motion Knee yoan Knee ROM WFL Yes Ankle and Foot Goniometric Range of Motion Ankle and Foot Left Active Ankle/Foot ROM WFL No Dorsiflexion with Knee Flexed 5 Dorsiflexion with Knee Extended 0 Right Active Ankle/Foot ROM WFL Yes Ankle and Foot ROM Limitations ROM Limitations Soft Tissue Tightness,Muscle Weakness,Swelling PT-OP-M Strength Start: 04/05/23 11:37 Freq: Status: Active Protocol: Document 04/05/23 16:02 [facility] (Rec: 04/05/23 16:40 [facility] [id number]) Knee Strength Knee Manual Muscle Testing Left Flexion (S2) 4 Good Extension (L3) 4+ Good+ Right Flexion (S2) 5 Normal Extension (L3) 5 Normal Ankle/Foot Strength Ankle and Foot Manual Muscle Testing Left Dorsiflexion (L4) 4 Good Plantarflexion (S1) 3+ Fair+ Inversion 4- Good- Eversion (S1) 3+ Fair+ Right Dorsiflexion (L4) 5 Normal Plantarflexion (S1) 5 Normal Inversion 5 Normal Eversion (S1) 5 Normal PT-OP-Q Treatments Start: 04/05/23 11:37 Freq: Status: Active Protocol: Document 05/04/23 08:45 [facility] (Rec: 05/04/23 09:38 [facility] [id number]) Cardio Equipment Bicycle (Upright) Duration (Minutes) 9 Resistance 6-8 Seat Position 8 Other cues for ankle df/pf, circular motion. Gym Equipment Shuttle Recovery Unilateral Heel Raises Resistance 12 Shuttle Recovery Platform Stable Reps/Time 10x4 Bilateral Heel Raises Details cues for 50:50 Resistance 37 Shuttle Recovery Platform Stable Reps/Time 10x2 Bilateral Squats Reps/Time 10x Shuttle Balance chains red Details bal and wt shift f/b WBOS EO , stride, side EO bal/wt shift Comments cues for equal weight bearing Therapeutic Exercises Sitting Exercises heel raise Resistance 15# on knee Reps/Minutes 10x2 Neuro Re-Education Treatment Balance Activities BOSU stand Details EO balance Equipment BOSU Reps/Duration 4 min foam stand Details SLS EO Surface compliant Equipment blue foam, black foam Reps/Duration 30 sec PT-OP-R Modalities Start: 04/05/23 11:37 Freq: Status: Active Protocol: Document 05/04/23 08:45 [facility] (Rec: 05/04/23 09:38 [facility] [id number]) Hot Pack/Cold Pack Treatment left achilles Treatment Duration (minutes) 10 Patient Tolerance Good PT-OP-T Assessment and Plan Start: 04/05/23 11:37 Freq: Status: Active Protocol: Document 05/04/23 08:45 [facility] (Rec: 05/04/23 09:38 [facility] [id number]) Physical Therapy Assessment Impairments Impairments Balance,Edema,Gait,Strength Goals Four Impairment edema left ankle Detention Goal (LTG) Reduce edema left ankle to WNL to allow for improved ankle function with all usual activities LTG Duration 06/05/23 Three Impairment Gait dysfunction Short Term Goal (STG) Patient to be able to walk on level surfaces with shoes and cane or trekking poles without limp or pain STG Duration Film Critic Goal (LTG) Patient will be able to walk on all surfaces and return to hiking wearing shoes/hiking boots and using least restrictive device without limp or pain LTG Duration 06/05/23 Two Impairment Balance dysfunction Impairment SLS right 14 sec, left 0 Detention Goal (LTG) Patient to be able to balance on left foot for 15 sec to allow him to return to all usual activities including hiking LTG Duration 06/05/23 One Impairment weakness left achilles and ankle with atrophy left calf Short Term Goal (STG) patient to be insructed in HEP for purposes of strengthening left achilles and all ankle motions STG Duration Detention Goal (LTG) Patient to be independent and compliant with HEP and demonstrate at least 4+/5 muscle strength left ankle all motions, and improved muscle bulk left calf. LTG Duration 06/05/23 Progress Towards Goals Progress Towards Goals Progressing Toward Goals Assessment Summary Assessment Inc repetitions heel raises and time balance work. Patient denies pain now, strength improving but still lacking full heel push off with gait. Physical Therapy Plan Frequency and Duration Frequency of Treatment 2x/Week Duration of treatment (weeks) 8 Plan of Care Start Date 04/05/23 Plan of Care End Date 06/05/23 Therapeutic Interventions Therapeutic Interventions Balance Training,Gait Training ,Home Exercise Program,Manual Therapy,Neuromuscular Re- education,Patient/Caregiver Education,Self-Care/Home Management,Soft Tissue Mobilization,Taping, Therapeutic Activities, Therapeutic Exercises Modalities Cold Pack/Ice Massage,Electric Stimulation,Hot Packs, Infrared Therapy,Iontophoresis ,Ultrasound Next Visit Focus/Plan Next Note Type Treatment Note Next Visit Plan Continue progression of ther ex for neuro re-ed and strengthening. Pre-gait and gait activities. Add sport cord all directions but emphasis fwd with push off. KT tape and ice.
--- NOTE | 2023-05-16 12:14 | PT.OTN ---
Current Diagnoses Primary osteoarthritis, unspecified ankle and foot (05/16/23) Strain of unspecified Achilles tendon, initial encounter (05/16/23) Physical Therapy Treatment Note PT-OP-A Visit Information Start: 04/05/23 11:37 Freq: Status: Active Protocol: Document 05/16/23 11:19 [facility] (Rec: 05/16/23 12:14 [facility] [id number]) Out-Patient Physical Therapy Visit Information Visit Information Visit Type Treatment Note Visit Start Time 11:19 Visit Stop Time 12:09 Total Visit Minutes 55 Visit Number 7 Evaluation Information Evaluation Date 04/05/23 PT-OP-B Current Condition Start: 04/05/23 11:37 Freq: Status: Active Protocol: Document 05/16/23 11:19 [facility]AK (Rec: 05/16/23 12:14 [facility] [id number]) Current Condition History of Current Condition Onset Date 7 months Current Complaints left ankle pain, weakness, difficulty walking. History of Current Condition Reports while on a hike with his dog he hit a root with his foot at full speed, fell. Went to urgent care, advised to ice and rest. No improvement. MRI finally showed partial achilles tear left. Patient has been in walking boot x 1 month. Reports minimal pain but states moderate weakness, so far not able to tolerate standing or walking without the boot. Has occasional N/T in heel. Has purchased Hoka shoes as recommended by physician. Hasn't tried walking with cane or trekking poles. Using Even Up on right shoe to improve walking ability in boot. Wears compression stocking most days . Wants to be able to return to hiking, walking normally. Prior Treatments and Tests no treatment. Future Testing and Treatments Planned nothing planned PT-OP-C Subjective Start: 04/05/23 11:37 Freq: Status: Active Protocol: Document 05/16/23 11:19 [facility]AK (Rec: 05/16/23 12:14 [facility] [id number]) OP-PT Subjective Patient Comments Patient Comments about 60% better. Patient Reported Progress Improving PT-OP-D Balance Start: 04/05/23 11:37 Freq: Status: Active Protocol: Document 04/05/23 16:02 [facility]AK (Rec: 04/05/23 16:40 [facility] [id number]) Balance Tests Single Limb Standing Single Limb- Right 0 Single Limb- Left 10 Tandem Tandem Standing 13 left foot in back, 5 sec right foot in back PT-OP-G Mobility & Gait Start: 04/05/23 11:37 Freq: Status: Active Protocol: Document 04/05/23 16:02 [facility] (Rec: 04/05/23 16:40 [facility] [id number]) OP Gait Assessment Gait Gait Assistance Required: Independent Distance (Feet) 60 Able to Maintain Weight Bearing Status Yes During Gait Assistive Devices Assistive Device None Orthotic/Prosthetic Devices or Brace: Yes Gait Deviations General Gait Pattern Antalgic Factors Limiting Gait Function Factors Limiting Gait Function Decreased Strength,Limited Range of Motion Stair Climbing Evaluation Evaluation Level of Assist On Stairs Independent Devices Stair Climbing Assistive Devices Left Railing,Right Railing Technique/Endurance Stair Climbing Direction Ascend and Descend Stair Climbing Technique Step to Step PT-OP-J Posture/Palpation/Skin Start: 04/05/23 11:37 Freq: Status: Active Protocol: Document 04/05/23 16:02 [facility] (Rec: 04/05/23 16:40 [facility] [id number]) Palpation Assessment Location left achilles Palpation Findings Edema,Tenderness PT-OP-K Range of Motion Start: 04/05/23 11:37 Freq: Status: Active Protocol: Document 04/05/23 16:02 [facility] (Rec: 04/05/23 16:40 [facility] [id number]) Knee Goniometric Range of Motion Knee yoan Knee ROM WFL Yes Ankle and Foot Goniometric Range of Motion Ankle and Foot Left Active Ankle/Foot ROM WFL No Dorsiflexion with Knee Flexed 5 Dorsiflexion with Knee Extended 0 Right Active Ankle/Foot ROM WFL Yes Ankle and Foot ROM Limitations ROM Limitations Soft Tissue Tightness,Muscle Weakness,Swelling PT-OP-M Strength Start: 04/05/23 11:37 Freq: Status: Active Protocol: Document 04/05/23 16:02 [facility] (Rec: 04/05/23 16:40 [facility] [id number]) Knee Strength Knee Manual Muscle Testing Left Flexion (S2) 4 Good Extension (L3) 4+ Good+ Right Flexion (S2) 5 Normal Extension (L3) 5 Normal Ankle/Foot Strength Ankle and Foot Manual Muscle Testing Left Dorsiflexion (L4) 4 Good Plantarflexion (S1) 3+ Fair+ Inversion 4- Good- Eversion (S1) 3+ Fair+ Right Dorsiflexion (L4) 5 Normal Plantarflexion (S1) 5 Normal Inversion 5 Normal Eversion (S1) 5 Normal PT-OP-Q Treatments Start: 04/05/23 11:37 Freq: Status: Active Protocol: Document 05/16/23 11:19 [facility] (Rec: 05/16/23 12:14 [facility] [id number]) Gym Equipment Shuttle Recovery Unilateral Heel Raises Resistance 12 Shuttle Recovery Platform Stable Reps/Time 10x4 Bilateral Heel Raises Details cues for 50:50 Resistance 37 Shuttle Recovery Platform Stable Reps/Time 10x2 Shuttle Balance chains red Details bal and wt shift f/b WBOS EO , stride, side EO bal/wt shift Comments cues for equal weight bearing Therapeutic Exercises Sitting Exercises heel raise Sitting Exercise Name HEP Standing Exercises heel raises Comments reports feels 70:30 right: left SLS Standing Exercise Name green>blue>black foam Reps/Minutes 3x ea color pre-gait heel-off Reps/Minutes 10x2 Comments emphasis on feeling calf muscles activate and push off Gait Training Gait Activity pre-gait heel off Treatment Focus push-off phase of gait Manual Therapy Treatment Taping left achilles Treatment Focus support Type of Tape Kinesio Tape Skin Inspection intact Comments I strip from heel distal to MTP 25% stretch, heel along achilles to proximal calf 50% stretch. I strip arch 50% stretch I strip mid achilles 50% stretch horizontal Neuro Re-Education Treatment Balance Activities BOSU stand Details EO balance, step-ups, lateral step-ups Equipment BOSU Reps/Duration 5 min foam stand Details SLS EO Surface compliant Equipment blue foam, black foam Reps/Duration 30 sec PT-OP-R Modalities Start: 04/05/23 11:37 Freq: Status: Active Protocol: Document 05/16/23 11:19 [facility] (Rec: 05/16/23 12:14 [facility] [id number]) Hot Pack/Cold Pack Treatment left achilles Treatment Duration (minutes) 10 Patient Tolerance Good PT-OP-T Assessment and Plan Start: 04/05/23 11:37 Freq: Status: Active Protocol: Document 05/16/23 11:19 [facility] (Rec: 05/16/23 12:14 [facility] [id number]) Physical Therapy Assessment Impairments Impairments Balance,Edema,Gait,Strength Goals Four Impairment edema left ankle Plant Floor Automation Manager Goal (LTG) Reduce edema left ankle to WNL to allow for improved ankle function with all usual activities LTG Duration 06/05/23 Three Impairment Gait dysfunction Short Term Goal (STG) Patient to be able to walk on level surfaces with shoes and cane or trekking poles without limp or pain STG Duration Care Home Goal (LTG) Patient will be able to walk on all surfaces and return to hiking wearing shoes/hiking boots and using least restrictive device without limp or pain LTG Duration 06/05/23 Two Impairment Balance dysfunction Impairment SLS right 14 sec, left 0 Plant Floor Automation Manager Goal (LTG) Patient to be able to balance on left foot for 15 sec to allow him to return to all usual activities including hiking LTG Duration 06/05/23 One Impairment weakness left achilles and ankle with atrophy left calf Short Term Goal (STG) patient to be insructed in HEP for purposes of strengthening left achilles and all ankle motions STG Duration Care Home Goal (LTG) Patient to be independent and compliant with HEP and demonstrate at least 4+/5 muscle strength left ankle all motions, and improved muscle bulk left calf. LTG Duration 06/05/23 Progress Towards Goals Progress Towards Goals Progressing Toward Goals Assessment Summary Assessment Patient now denying pain, feels stiff in am. Lacking full push-off with gait but improving. Good compliance to HEP. Issued L3 TB for continued progression of HE:. Physical Therapy Plan Frequency and Duration Frequency of Treatment 2x/Week Duration of treatment (weeks) 8 Plan of Care Start Date 04/05/23 Plan of Care End Date 06/05/23 Therapeutic Interventions Therapeutic Interventions Balance Training,Gait Training ,Home Exercise Program,Manual Therapy,Neuromuscular Re- education,Patient/Caregiver Education,Self-Care/Home Management,Soft Tissue Mobilization,Taping, Therapeutic Activities, Therapeutic Exercises Modalities Cold Pack/Ice Massage,Electric Stimulation,Hot Packs, Infrared Therapy,Iontophoresis ,Ultrasound Next Visit Focus/Plan Next Note Type Treatment Note Next Visit Plan sport cord, pre-gait and challenged gait, calf strengthening
--- NOTE | 2023-05-19 12:11 | PT.OTN ---
Current Diagnoses Primary osteoarthritis, unspecified ankle and foot (05/19/23) Strain of unspecified Achilles tendon, initial encounter (05/19/23) Physical Therapy Treatment Note PT-OP-A Visit Information Start: 04/05/23 11:37 Freq: Status: Active Protocol: Document 05/19/23 11:18 [facility] (Rec: 05/19/23 12:10 [facility] [id number]) Out-Patient Physical Therapy Visit Information Visit Information Visit Type Treatment Note Visit Start Time 11:19 Visit Stop Time 12:09 Total Visit Minutes 55 Visit Number 8 Evaluation Information Evaluation Date 04/05/23 PT-OP-B Current Condition Start: 04/05/23 11:37 Freq: Status: Active Protocol: Document 05/19/23 11:18 [facility] (Rec: 05/19/23 12:10 [facility] [id number]) Current Condition History of Current Condition Onset Date 7 months Current Complaints left ankle pain, weakness, difficulty walking. History of Current Condition Reports while on a hike with his dog he hit a root with his foot at full speed, fell. Went to urgent care, advised to ice and rest. No improvement. MRI finally showed partial achilles tear left. Patient has been in walking boot x 1 month. Reports minimal pain but states moderate weakness, so far not able to tolerate standing or walking without the boot. Has occasional N/T in heel. Has purchased [employer]oka shoes as recommended by physician. Hasn't tried walking with cane or trekking poles. Using Even Up on right shoe to improve walking ability in boot. Wears compression stocking most days . Wants to be able to return to hiking, walking normally. Prior Treatments and Tests no treatment. Future Testing and Treatments Planned nothing planned PT-OP-C Subjective Start: 04/05/23 11:37 Freq: Status: Active Protocol: Document 05/19/23 11:18 [facility] (Rec: 05/19/23 12:10 [facility] [id number]) OP-PT Subjective Patient Comments Patient Comments No new c/o. Mother in law ill so he will be leaving town soon PT-OP-D Balance Start: 04/05/23 11:37 Freq: Status: Active Protocol: Document 04/05/23 16:02 [facility] (Rec: 04/05/23 16:40 [facility] [id number]) Balance Tests Single Limb Standing Single Limb- Right 0 Single Limb- Left 10 Tandem Tandem Standing 13 left foot in back, 5 sec right foot in back PT-OP-G Mobility & Gait Start: 04/05/23 11:37 Freq: Status: Active Protocol: Document 04/05/23 16:02 [facility] (Rec: 04/05/23 16:40 [facility] [id number]) OP Gait Assessment Gait Gait Assistance Required: Independent Distance (Feet) 60 Able to Maintain Weight Bearing Status Yes During Gait Assistive Devices Assistive Device None Orthotic/Prosthetic Devices or Brace: Yes Gait Deviations General Gait Pattern Antalgic Factors Limiting Gait Function Factors Limiting Gait Function Decreased Strength,Limited Range of Motion Stair Climbing Evaluation Evaluation Level of Assist On Stairs Independent Devices Stair Climbing Assistive Devices Left Railing,Right Railing Technique/Endurance Stair Climbing Direction Ascend and Descend Stair Climbing Technique Step to Step PT-OP-J Posture/Palpation/Skin Start: 04/05/23 11:37 Freq: Status: Active Protocol: Document 04/05/23 16:02 [facility] (Rec: 04/05/23 16:40 [facility] [id number]) Palpation Assessment Location left achilles Palpation Findings Edema,Tenderness PT-OP-K Range of Motion Start: 04/05/23 11:37 Freq: Status: Active Protocol: Document 04/05/23 16:02 [facility] (Rec: 04/05/23 16:40 [facility] [id number]) Knee Goniometric Range of Motion Knee yoan Knee ROM WFL Yes Ankle and Foot Goniometric Range of Motion Ankle and Foot Left Active Ankle/Foot ROM WFL No Dorsiflexion with Knee Flexed 5 Dorsiflexion with Knee Extended 0 Right Active Ankle/Foot ROM WFL Yes Ankle and Foot ROM Limitations ROM Limitations Soft Tissue Tightness,Muscle Weakness,Swelling PT-OP-M Strength Start: 04/05/23 11:37 Freq: Status: Active Protocol: Document 04/05/23 16:02 [facility] (Rec: 04/05/23 16:40 [facility] [id number]) Knee Strength Knee Manual Muscle Testing Left Flexion (S2) 4 Good Extension (L3) 4+ Good+ Right Flexion (S2) 5 Normal Extension (L3) 5 Normal Ankle/Foot Strength Ankle and Foot Manual Muscle Testing Left Dorsiflexion (L4) 4 Good Plantarflexion (S1) 3+ Fair+ Inversion 4- Good- Eversion (S1) 3+ Fair+ Right Dorsiflexion (L4) 5 Normal Plantarflexion (S1) 5 Normal Inversion 5 Normal Eversion (S1) 5 Normal PT-OP-Q Treatments Start: 04/05/23 11:37 Freq: Status: Active Protocol: Document 05/19/23 11:18 [facility] (Rec: 05/19/23 12:10 [facility] [id number]) Gym Equipment Shuttle Balance chains red Details bal and wt shift f/b WBOS EO , stride, side EO bal/wt shift Comments cues for equal weight bearing Sport Cord green Exercise Details fwd Cord/Resistance green Comments end-range wt shift with emphasis on push off left Therapeutic Exercises Standing Exercises heel raises Comments reports feels 70:30 right: left SLS Standing Exercise Name blue>black foam Reps/Minutes 3x ea color pre-gait heel-off Reps/Minutes 10x2 Comments emphasis on feeling calf muscles activate and push off Gait Training Gait Activity pre-gait heel off Treatment Focus push-off phase of gait mirror Device Used none Level of Assistance SBA, cues Surface firm Distance/Duration 5 min Treatment Focus mirror for visual feedback; dec compensation, equalize step length Comments emphasis on push-off phase of gait Manual Therapy Treatment Soft Tissue Mobilization gastroc Body Location left calf Mobilization Type Myofascial Release,Strumming Intensity/Depth Deep Body Position Prone L achilles Body Location medial and lateral to tendon Mobilization Type Cross-Friction,Myofascial Release,Strumming Intensity/Depth Deep Body Position Prone Taping left achilles Treatment Focus support Type of Tape Kinesio Tape Skin Inspection intact Comments I strip from heel distal to MTP 25% stretch, heel along achilles to proximal calf 50% stretch. I strip arch 50% stretch I strip mid achilles 50% stretch horizontal PT-OP-R Modalities Start: 04/05/23 11:37 Freq: Status: Active Protocol: Document 05/19/23 11:18 [facility] (Rec: 05/19/23 12:11 [facility] [id number]) Hot Pack/Cold Pack Treatment left achilles Treatment Duration (minutes) 10 Patient Tolerance Good PT-OP-T Assessment and Plan Start: 04/05/23 11:37 Freq: Status: Active Protocol: Document 05/19/23 11:18 [facility] (Rec: 05/19/23 12:10 [facility] [id number]) Physical Therapy Assessment Impairments Impairments Balance,Edema,Gait,Strength Goals Four Impairment edema left ankle Service Delivery Analyst Goal (LTG) Reduce edema left ankle to WNL to allow for improved ankle function with all usual activities LTG Duration 06/05/23 Three Impairment Gait dysfunction Short Term Goal (STG) Patient to be able to walk on level surfaces with shoes and cane or trekking poles without limp or pain STG Duration Longterm Goal (LTG) Patient will be able to walk on all surfaces and return to hiking wearing shoes/hiking boots and using least restrictive device without limp or pain LTG Duration 06/05/23 Two Impairment Balance dysfunction Impairment SLS right 14 sec, left 0 Longterm Goal (LTG) Patient to be able to balance on left foot for 15 sec to allow him to return to all usual activities including hiking LTG Duration 06/05/23 One Impairment weakness left achilles and ankle with atrophy left calf Short Term Goal (STG) patient to be insructed in HEP for purposes of strengthening left achilles and all ankle motions STG Duration Longterm Goal (LTG) Patient to be independent and compliant with HEP and demonstrate at least 4+/5 muscle strength left ankle all motions, and improved muscle bulk left calf. LTG Duration 06/05/23 Progress Towards Goals Progress Towards Goals Progressing Toward Goals Assessment Summary Assessment added sport cord with end- range push off ex, further gait training with use of mirror and verbal cues for dec compensation. Instructed in self-masssage using tennis ball or rolling pin Physical Therapy Plan Frequency and Duration Frequency of Treatment 2x/Week Duration of treatment (weeks) 8 Plan of Care Start Date 04/05/23 Plan of Care End Date 06/05/23 Therapeutic Interventions Therapeutic Interventions Balance Training,Gait Training ,Home Exercise Program,Manual Therapy,Neuromuscular Re- education,Patient/Caregiver Education,Self-Care/Home Management,Soft Tissue Mobilization,Taping, Therapeutic Activities, Therapeutic Exercises Modalities Cold Pack/Ice Massage,Electric Stimulation,Hot Packs, Infrared Therapy,Iontophoresis ,Ultrasound Next Visit Focus/Plan Next Note Type Treatment Note Next Visit Plan Continue PT per POC when patient returns from out of town due to family issue.
--- NOTE | 2023-11-03 16:00 | PT.OPDS ---
Current Diagnoses Primary osteoarthritis, unspecified ankle and foot (05/19/23) Strain of unspecified Achilles tendon, initial encounter (05/19/23) Visit Care Team Role Provider Type Ash Redmond MD Family Provider Physician Primary Care Provider Specialty: Family Practice Address: [address] [place] [address], [id number] Email: [email or web address] Lynn You PA-C Attending Provider Advanced Card Cutter Helper Referring Provider Specialty: Medical Wound Care Address: [address] [place] [address], [id number] Email: [email or web address] Visit Number Visit Number 8 Discharge Summary PT-OP-B Current Condition Start: 04/05/23 11:37 Freq: Status: Active Protocol: Document 05/19/23 11:18 [facility] (Rec: 05/19/23 12:10 [facility] [id number]) Current Condition History of Current Condition Onset Date 7 months Current Complaints left ankle pain, weakness, difficulty walking. History of Current Condition Reports while on a hike with his dog he hit a root with his foot at full speed, fell. Went to urgent care, advised to ice and rest. No improvement. MRI finally showed partial achilles tear left. Patient has been in walking boot x 1 month. Reports minimal pain but states moderate weakness, so far not able to tolerate standing or walking without the boot. Has occasional N/T in heel. Has purchased Hoka shoes as recommended by physician. Hasn't tried walking with cane or trekking poles. Using Even Up on right shoe to improve walking ability in boot. Wears compression stocking most days . Wants to be able to return to hiking, walking normally. Prior Treatments and Tests no treatment. Future Testing and Treatments Planned nothing planned PT-OP-C Subjective Start: 04/05/23 11:37 Freq: Status: Active Protocol: Document 05/19/23 11:18 [facility] (Rec: 05/19/23 12:10 [facility] [id number]) OP-PT Subjective Patient Comments Patient Comments No new c/o. Mother in law ill so he will be leaving town soon PT-OP-D Balance Start: 04/05/23 11:37 Freq: Status: Active Protocol: Document 04/05/23 16:02 [facility] (Rec: 04/05/23 16:40 [facility] [id number]) Balance Tests Single Limb Standing Single Limb- Right 0 Single Limb- Left 10 Tandem Tandem Standing 13 left foot in back, 5 sec right foot in back PT-OP-G Mobility & Gait Start: 04/05/23 11:37 Freq: Status: Active Protocol: Document 04/05/23 16:02 [facility] (Rec: 04/05/23 16:40 [facility] [id number]) OP Gait Assessment Gait Gait Assistance Required: Independent Distance (Feet) 60 Able to Maintain Weight Bearing Status Yes During Gait Assistive Devices Assistive Device None Orthotic/Prosthetic Devices or Brace: Yes Gait Deviations General Gait Pattern Antalgic Factors Limiting Gait Function Factors Limiting Gait Function Decreased Strength,Limited Range of Motion Stair Climbing Evaluation Evaluation Level of Assist On Stairs Independent Devices Stair Climbing Assistive Devices Left Railing,Right Railing Technique/Endurance Stair Climbing Direction Ascend and Descend Stair Climbing Technique Step to Step PT-OP-J Posture/Palpation/Skin Start: 04/05/23 11:37 Freq: Status: Active Protocol: Document 04/05/23 16:02 [facility] (Rec: 04/05/23 16:40 [facility] [id number]) Palpation Assessment Location left achilles Palpation Findings Edema,Tenderness PT-OP-K Range of Motion Start: 04/05/23 11:37 Freq: Status: Active Protocol: Document 04/05/23 16:02 [facility] (Rec: 04/05/23 16:40 [facility] [id number]) Knee Goniometric Range of Motion Knee yoan Knee ROM WFL Yes Ankle and Foot Goniometric Range of Motion Ankle and Foot Left Active Ankle/Foot ROM WFL No Dorsiflexion with Knee Flexed 5 Dorsiflexion with Knee Extended 0 Right Active Ankle/Foot ROM WFL Yes Ankle and Foot ROM Limitations ROM Limitations Soft Tissue Tightness,Muscle Weakness,Swelling PT-OP-M Strength Start: 04/05/23 11:37 Freq: Status: Active Protocol: Document 04/05/23 16:02 [facility] (Rec: 04/05/23 16:40 [facility] [id number]) Knee Strength Knee Manual Muscle Testing Left Flexion (S2) 4 Good Extension (L3) 4+ Good+ Right Flexion (S2) 5 Normal Extension (L3) 5 Normal Ankle/Foot Strength Ankle and Foot Manual Muscle Testing Left Dorsiflexion (L4) 4 Good Plantarflexion (S1) 3+ Fair+ Inversion 4- Good- Eversion (S1) 3+ Fair+ Right Dorsiflexion (L4) 5 Normal Plantarflexion (S1) 5 Normal Inversion 5 Normal Eversion (S1) 5 Normal PT-OP-T Assessment and Plan Start: 04/05/23 11:37 Freq: Status: Active Protocol: Document 11/03/23 15:59 [facility] (Rec: 11/03/23 16:00 [facility] [id number]) Physical Therapy Plan Discharge Physical Therapy Discharge Reasons No Longer Attending PT
== END 2023-11-07 13:55 | disposition home or self-care (01) ==
LOC: PHYS 11:15
PROVIDERS: Family Provider Family Medicine; PCP Family Medicine; Referring Provider Physician Assistant; Visit Provider Physician Assistant
DX: S86.019A Strain of unspecified Achilles tendon, initial encounter (principal); M19.079 Primary osteoarthritis, unspecified ankle and foot
CPT/HCPCS: 97110; 97112; 97116; 97140; 97162; 97535

== ENCOUNTER → 2023-08-17 09:39 | Outpatient (CLI) | payer BC, OTHER, SELFPAY ==
[2021-04-28 08:48] VITALS: BMI 27.9
[2023-08-17 10:56] LABS: Microalbumin Urine Random < 0.6 mg/dL (0-1.6)
[2023-08-17 11:04] LABS: Add Manual Diff / Slide Review NO; Basophils Absolute Auto 0 /uL (0-100); Basophils Percent Auto 0.4 % (0-2); Eosinophils Absolute Auto 400 /uL (0-450); Eosinophils Percent Auto 5.7 % (2-4); Hematocrit 41.8 % (41-53); Hemoglobin 14.2 g/dL (13.5-17.5); Lymphocytes Absolute Auto 1800 /uL (1100-4500); Lymphocytes Percent Auto 28.9 % (25-40); Mean Corpuscular Hemoglobin 29.4 PG (26-34); Mean Corpuscular Volume 86.6 fL (80-100); Monocytes Absolute Auto 600 /uL (0-900); Neutrophils Absolute Auto 3500 /uL (1500-7000); Platelet Count 231 X10^3/uL (150-400); Red Blood Cell Count 4.82 X10^6/uL (4.5-5.9); Red Cell Distribution Width 13.3 % (11.6-14.8); White Blood Cell Count 6.3 X10^3/uL (4.5-11.0)
[2023-08-17 11:38] LABS: Alanine Aminotransferase 55 IU/L (<50); Albumin 4.5 g/dL (3.5-5.0); Albumin Globulin Ratio 1.7 (1.0-2.8); Alkaline Phosphatase 64 U/L (38-126); Aspartate Aminotransferase 29 IU/L (17-59); BUN Creatinine Ratio 21.7 (6-22); Bilirubin Total 0.5 mg/dL (0.2-1.3); Blood Urea Nitrogen 18 mg/dL (9-20); Calcium 9.9 mg/dL (8.4-10.2); Carbon Dioxide 26 mmol/L (22-32); Chloride 111 mmol/L (98-107); Cholesterol 148 mg/dL (140-199); Estimated Glomerular Filt Rate > 60 mL/min (>60); Globulin 2.7 g/dL (1.7-4.1); Glucose 94 mg/dL (80-110); HDL Cholesterol 47 mg/dL (40-60); HEMOLYSIS < 15 (0-50); LDL Cholesterol Calculated 85 mg/dL (<100); Potassium 4.5 mmol/L (3.4-5.1); Sodium 144 mmol/L (137-145); Total Protein 7.2 g/dL (6.3-8.2); Triglycerides 82 mg/dL (35-150)
[2023-08-17 12:02] LABS: Prostate Specific Antigen Scrn 2.66 ng/mL (0.1-4.0)
[2023-08-17 12:03] LABS: TSH w/ Reflex to FT4 0.74 uIU/mL (0.47-4.68)
[2023-08-18 19:58] LABS: Hep C Virus Ab w/Reflex Quant NEGATIVE s/c (NEGATIVE)
[2023-08-19 05:21] LABS: Apolipoprotein B 69 mg/dL (<90)
== END ==
PROVIDERS: Family Provider Family Medicine; PCP Family Medicine; Referring Provider Family Medicine; Visit Provider Family Medicine
DX: D17.9 Benign lipomatous neoplasm, unspecified (principal); E78.5 Hyperlipidemia, unspecified; I10 Essential (primary) hypertension; Z12.5 Encounter for screening for malignant neoplasm of prostate; D64.9 Anemia, unspecified
CPT/HCPCS: 36415; 80053; 80061; 82043; 82172; 82570; 84443; 85025; 86803; G0103

== ENCOUNTER → 2023-08-24 15:08 | Outpatient (CLI) | payer BC, OTHER, SELFPAY ==
[2021-04-28 08:48] VITALS: BMI 27.9
== END ==
LOC: CAR 15:09
PROVIDERS: Family Provider Family Medicine; PCP Family Medicine; Referring Provider Family Medicine; Visit Provider Family Medicine
DX: R00.2 Palpitations (principal)
CPT/HCPCS: 93246

== ENCOUNTER 2023-09-06 11:59 | Day surgery (SDC) | payer BC, OTHER, SELFPAY ==
[2021-04-28 08:48] VITALS: BMI 27.9
[2023-09-06 12:38] VITALS: BP 149/86; PULSE 71; RESP 20; TEMP 36.4; O2SAT 96
[2023-09-06] MEDS: LACTATED RINGERS 1,000 ML 150 ML IV (12:46)
--- NOTE | 2023-09-06 13:07 | PM.PREOP ---
Pre-operative Note COVID-19 COVID-19 status: Not tested Interval Note History & Physical reviewed/Exam performed by Physician: Yes Changes to H&P: No ASA Class (for procedural sedation): II
--- NOTE | 2023-09-06 13:51 | PM.OP.COLON ---
Operative Date/Time/Diagnoses Date of procedure: 09/06/23 Time of procedure: 13:51 Pre-op diagnosis: History of polyps Post-op diagnosis: same Procedure & Clinicians Study performed: Colonoscopy Same procedure as scheduled: Yes Surgeon: Marek Branch Procedure Notes Procedure in detail: Surgeon: Marek Branch MD Anesthesia: Cass Vargas CRNA Procedure: The patient was brought to the endoscopy suite, placed in left lateral decubitus position. The patient was connected to monitoring devices. A time-out was performed. Sedation was administered. Once the patient was adequately sedated, a digital rectal exam was performed and was normal. The scope was then inserted and advanced to the cecum where the appendiceal orifice was identified and photographed. The scope was then slowly withdrawn over greater than 6 minutes. The mucosa was thoroughly inspected. No abnormalities were found. The scope was retroflexed in the rectum. No abnormalities were seen. The scope was straightened and removed. The patient was awakened and brought to recovery. Scope withdrawal time: 7 minutes Sedation time: 27 minutes EBL: 0 Findings: Normal colon Post-procedure Recommendations: Colonoscopy in 10 years Disposition: PACU
[2023-09-06 13:53] VITALS: BP 160/77; PULSE 65; RESP 13; TEMP 36.5; O2SAT 97
[2023-09-06 13:58] VITALS: BP 143/86; PULSE 71; RESP 18; O2SAT 95
== END 2023-09-06 14:12 | disposition home or self-care (01) ==
PROVIDERS: Family Provider Family Medicine; PCP Family Medicine; Referring Provider Surgery; Visit Provider Surgery
PROC: 0DJD8ZZ Inspection of Lower Intestinal Tract, Via Natural or Artificial Opening Endoscopic (ICD-10-PCS; CPT 45378; principal; 2023-09-06 13:00)
DX: Z12.11 Encounter for screening for malignant neoplasm of colon (principal); Z86.010 Personal history of colon polyps
CPT/HCPCS: 45378; J2704

== ENCOUNTER → 2024-10-30 06:59 | Outpatient (CLI) | payer OTHER, SELFPAY ==
[2021-04-28 08:48] VITALS: BMI 27.9
[2024-10-30 07:38] LABS: Add Manual Diff / Slide Review NO; Basophils Absolute Auto 0 /uL (0-100); Basophils Percent Auto 0.7 % (0-2); Eosinophils Absolute Auto 500 /uL (0-450); Eosinophils Percent Auto 8.2 % (2-4); Hematocrit 40.8 % (41-53); Hemoglobin 13.8 g/dL (13.5-17.5); Lymphocytes Absolute Auto 2400 /uL (1100-4500); Lymphocytes Percent Auto 42.3 % (25-40); Mean Corpuscular HGB Conc 33.8 % (30-36); Mean Corpuscular Hemoglobin 29.6 PG (26-34); Mean Corpuscular Volume 87.4 fL (80-100); Monocytes Absolute Auto 600 /uL (0-900); Monocytes Percent Auto 11.3 % (3-14); Neutrophils Absolute Auto 2100 /uL (1500-7000); Neutrophils Percent Auto 37.5 % (50-75); Platelet Count 220 X10^3/uL (150-400); Red Blood Cell Count 4.67 X10^6/uL (4.5-5.9); Red Cell Distribution Width 13.5 % (11.6-14.8); White Blood Cell Count 5.7 X10^3/uL (4.5-11.0)
[2024-10-30 08:04] LABS: Hemoglobin A1C% w Est Avg Glu 5.4 % (4.0-6.0)
[2024-10-30 08:07] LABS: Alanine Aminotransferase 47 IU/L (<50); Albumin 4.3 g/dL (3.5-5.0); Albumin Globulin Ratio 1.9 (1.0-2.8); Alkaline Phosphatase 62 U/L (38-126); Aspartate Aminotransferase 29 IU/L (17-59); BUN Creatinine Ratio 20.5 (6-22); Bilirubin Total 0.3 mg/dL (0.2-1.3); Blood Urea Nitrogen 18 mg/dL (9-20); Calcium 9.4 mg/dL (8.4-10.2); Carbon Dioxide 21 mmol/L (22-32); Chloride 111 mmol/L (98-107); Cholesterol 164 mg/dL (140-199); Estimated Glomerular Filt Rate > 60 mL/min (>60); Globulin 2.3 g/dL (1.7-4.1); Glucose 115 mg/dL (70-99); HDL Cholesterol 50 mg/dL (40-60); HEMOLYSIS < 15 (0-50); LDL Cholesterol Calculated 99 mg/dL (<100); Sodium 141 mmol/L (137-145); Total Protein 6.6 g/dL (6.3-8.2); Triglycerides 75 mg/dL (35-150)
[2024-10-30 08:30] LABS: TSH w/ Reflex to FT4 1.43 uIU/mL (0.47-4.68)
[2024-10-30 08:32] LABS: Prostate Specific Antigen Scrn 3.04 ng/mL (0.1-4.0)
== END ==
PROVIDERS: Family Provider Family Medicine; PCP Family Medicine; Referring Provider Family Medicine; Visit Provider Family Medicine
DX: Z13.1 Encounter for screening for diabetes mellitus (principal); E78.5 Hyperlipidemia, unspecified; I10 Essential (primary) hypertension; Z12.5 Encounter for screening for malignant neoplasm of prostate
CPT/HCPCS: 36415; 80053; 80061; 83036; 84443; 85025; G0103